=== PATIENT | female | born 1970 | race Caucasian/White ===

== ENCOUNTER → 2017-12-14 13:15 | Outpatient (CLI) | payer BC, SELFPAY ==
[2017-12-14 14:24] LABS: hCG Titer Quant., Serum < 1 mIU/mL (<9 non-preg)
[2017-12-14 14:29] LABS: Hemoglobin A1c 5.5 % (4.2-6.3)
[2017-12-14 14:31] LABS: Estradiol 81.2 pg/mL; Follicle Stimulating Hormone 6.1 mIU/mL; Free T3 2.4 pg/mL (2.18-3.98); T4 Free Direct 1.02 ng/dL (0.76-1.46); Thyroid Stim Hormone (TSH) 1.29 uIU/mL (0.358-3.74)
== END ==
PROVIDERS: Visit Provider Obstetrics & Gynecology
DX: N92.6 Irregular menstruation, unspecified (principal); R10.2 Pelvic and perineal pain
CPT/HCPCS: 36415; 82670; 83001; 83036; 84144; 84403; 84439; 84443; 84481; 84702

== ENCOUNTER → 2017-12-16 12:52 | Outpatient (CLI) | payer BC, SELFPAY ==
--- NOTE | 2017-12-16 12:58 | US_ITS ---
STUDY: ULTRASOUND OF THE FEMALE PELVIS - COMPLETE REASON FOR EXAM: Female, 47 years old. Pelvic pain LMP: 11/17/2017 TECHNIQUE: Transabdominal and Transvaginal TECHNICAL QUALITY: Adequate. COMPARISON: None. FINDINGS: The uterus is anteverted and is in a midline position. The uterus measures 8.9 x 5.2 x 4.0 cm. There are cervical nabothian cysts, the largest measuring 10 mm. The endometrium measures 18 mm in thickness, and is hyperechoic. There are several endometrial cysts measuring 6 x 4 x 3 mm and 6 x 5 x 4 mm. There is no demonstrated endometrial mass. There is no demonstrated myometrial mass. I.U.D. - The patient does not have an I.U.D. The right ovary is visualized. The right ovary measures 4.0 x 2.5 x 1.6 cm. There is a mixed echogenic right ovarian mass measuring 1.6 x 1.5 x 1.2 cm. There is no visualized right adnexal mass or complex lesion. There is normal arterial and normal venous vascularity. The left ovary is visualized. The left ovary measures 3.0 x 1.7 x 1.7 cm. cm. There is no left ovarian cyst or ovarian mass. There is no visualized left adnexal mass or complex lesion. There is normal arterial and normal venous vascularity. There is no fluid in the cul-de-sac. Polycystic ovary disease: No. US/Pelvic (Non ) IMPRESSION: Thickened endometrium, measuring 18 mm. There are several endometrial cystic foci measuring 6 x 4 x 3 mm and 6 x 5 x 4 mm respectively. There is a mixed echogenic well-defined right ovarian mass measuring 1.6 x 1.5 x 1.2 cm. There are cervical nabothian cysts, the largest measuring 10 mm. Further evaluation of the right ovary is recommended. Pelvic CT with and without contrast and/or MRI may be helpful for further evaluation at this time. Electronically Signed: Steven Shipley MD at 21:56 EDT , Service support ,
--- NOTE | 2017-12-16 13:15 | US_ITS ---
STUDY: ULTRASOUND OF THE FEMALE PELVIS - COMPLETE REASON FOR EXAM: Female, 47 years old. Pelvic pain LMP: 11/17/2017 TECHNIQUE: Transabdominal and Transvaginal TECHNICAL QUALITY: Adequate. COMPARISON: None. FINDINGS: The uterus is anteverted and is in a midline position. The uterus measures 8.9 x 5.2 x 4.0 cm. There are cervical nabothian cysts, the largest measuring 10 mm. The endometrium measures 18 mm in thickness, and is hyperechoic. There are several endometrial cysts measuring 6 x 4 x 3 mm and 6 x 5 x 4 mm. There is no demonstrated endometrial mass. There is no demonstrated myometrial mass. I.U.D. - The patient does not have an I.U.D. The right ovary is visualized. The right ovary measures 4.0 x 2.5 x 1.6 cm. There is a mixed echogenic right ovarian mass measuring 1.6 x 1.5 x 1.2 cm. There is no visualized right adnexal mass or complex lesion. There is normal arterial and normal venous vascularity. The left ovary is visualized. The left ovary measures 3.0 x 1.7 x 1.7 cm. cm. There is no left ovarian cyst or ovarian mass. There is no visualized left adnexal mass or complex lesion. There is normal arterial and normal venous vascularity. There is no fluid in the cul-de-sac. Polycystic ovary disease: No. US/Transvaginal Non- IMPRESSION: Thickened endometrium, measuring 18 mm. There are several endometrial cystic foci measuring 6 x 4 x 3 mm and 6 x 5 x 4 mm respectively. There is a mixed echogenic well-defined right ovarian mass measuring 1.6 x 1.5 x 1.2 cm. There are cervical nabothian cysts, the largest measuring 10 mm. Further evaluation of the right ovary is recommended. Pelvic CT with and without contrast and/or MRI may be helpful for further evaluation at this time. Electronically Signed: Steven Shipley MD at 21:56 EDT , Service support ,
== END ==
PROVIDERS: PCP Family Medicine; Visit Provider Obstetrics & Gynecology
DX: R14.0 Abdominal distension (gaseous) (principal); R10.2 Pelvic and perineal pain
CPT/HCPCS: 76830; 76856; 93976

== ENCOUNTER 2018-01-12 06:57 | Day surgery (SDC) | payer BC, SELFPAY ==
[2018-01-06 10:44] LABS: Hematocrit 40.7 % (37-47); Hemoglobin 13.3 g/dl (12.0-15.0); Mean Corp Hgb Conc 32.7 g/gl (32-36); Mean Corpuscular Hgb 28.9 pg (27.0-32.0); Mean Corpuscular Volume 88.5 fL (81-99); Mean Platelet Vol. 10.6 fl (6.2-12.0); Platelet Count 251 K/mm3 (150-450); RBC Distribution Width CV 13.4 % (11.6-14.6); RBC Distribution Width SD 43.4 fl (35.1-43.9); White Blood Count 5.8 K/mm3 (4.4-11.0)
[2018-01-06 10:48] LABS: Scan Indicated on CBC? Y/N NO
[2018-01-06 10:56] LABS: Prothrombin Time (Protime)PT. 13.6 SECONDS (11.7-14.9)
[2018-01-06 10:57] LABS: Partial Thromboplast Time 32.1 Seconds (24.1-36.2)
--- NOTE | 2018-01-11 | EMB_PTH ---
PATIENT: RIGO LA LOC: [facility] [place] U#:[id number] AGE/SX: 47/F ROOM: RE01/12/[address]: Dr. Juanis Brown MD : 1970 BED: DIS: 01/12/2018 SPEC #: [id number] RECD: 01/12/18 14:37 STATUS: GERA CRISTIAN #: [id number] JESSICA: 01/11/18 00:[address]: Juanis Brown DEPT: SURGICAL PATHOLOGY RECD BY: Carlos Willett ENTERED: 01/12/18 14:38 SP TYPE: ENDOM BX/C LINSEY DR: MD Joseph Glasgow Tissues: Endometrium, NOS Procedures: Surgery Specimen Level IV HEADER OPERATION: Hysteroscopy, dilation and curettage PRE-OP DIAGNOSIS: Thickened endometrium TISSUE SUBMITTED: Uterus, endometrium MICROSCOPIC DIAGNOSIS Endometrium, dilation and curettage: Secretory endometrium. SJ:lilia 01/15/18 MICROSCOPIC DESCRIPTION Slides are reviewed. GROSS DESCRIPTION Received in fixative is one container labeled with the patient's name and designated endometrium. The specimen consists of multiple irregular fragments of alfaro-pink soft tissue that in aggregate measure 5 x 3 x 0.3 cm. The specimen is totally submitted in two cassettes. / SJ:lilia 01/12/18 TC:4 CPT: 90446
[2018-01-12] VITALS (8 sets, daily range): BP systolic 107–127; BP diastolic 65–81; PULSE 61–72; RESP 16; TEMP 36.8–37.1; O2SAT 99–100; BMI 30.6
[2018-01-12 07:58] LABS: Internal QC Validated? YES +Cl - CLEAR BKGD; Pregnancy, Urine Negative Negative
--- NOTE | 2018-01-12 09:01 | OP.PCM_ITS ---
Problem List (1) Endometrial thickening on ultrasound Status: Acute Report of Operation Date of Procedure: 01/12/18 Pre-Operative Diagnosis: Thickened endometrium on ultrasound Post-Operative Diagnosis: Same Surgery/Procedure Performed:: D and C, hysteroscopy diagnostic Description of Surgical Findings:: Uterus was sounded to approximately 9 and half centimeters in anterior position. Uterus was fully mobile. Bilateral adnexa are benign and fully mobile. artillery meteorological man: Hue Khalil Type of Anesthesia:: Local, MAC Anesthesiologist: Trav Hendrix Special Medications: Clindamycin and gentamicin IV preoperatively Specimen's removed: Endometrium Drains: None Estimated Blood Loss (mL): Minimal Fluids Replaced: Lactated ringer Description of Procedure: Patient presented to the operating suite and n.p.o. status since midnight the night before surgery. Patient was placed on the operating bed and underwent a MAC anesthetic. Once found be adequate, she was placed in the dorsal lithotomy position via the Rey stirrups. She was prepped and draped in the normal sterile fashion and the bladder was emptied of all remaining urine with a straight catheter. The urine was approximately 200 cc of clear urine. The weighted speculum was then placed to the vagina and the anterior lip of the cervix was grasped and elevated. 10 cc of 1% lidocaine was placed locally to the 4 quadrants of the cervix. Patient tolerated the procedure well. The uterus was sounded to 9-1/2 cm in an anterior position. The cervical eyes was then dilated to accommodate a 3 mm hysteroscope. At 3 mm hysteroscope was placed into the endometrial cavity with a large amount of endometrium noted throughout the entire endometrial cavity. The hysteroscope was removed and followed by sharp curettage of the entire endometrial cavity. This tissue was collected and sent away for pathological diagnosis. Replacement of hysteroscope into the endometrial cavity revealed removal of all tissue. The hysteroscope was then removed from the endometrial cavity Grafts/Implants Used: None - Complications None - Admit VTE Documentation VTE Present on Admission: No VTE Pharm Prophylaxis ordered?: No Reason prophylaxis not ordered:: Procedure Not Indicated
--- NOTE | 2018-01-12 09:03 | DCINST_ITS ---
Discharge Diet: No Restrictions Discharge Activity: Return to Normal Activity, May Shower, May Take a Tub Bath - in 2 weeks. Return to work on:: 01/15/18 May shower in (days): 0 - TODAY May resume sexual activity in: 2 weeks Weight Bearing Status: Full weight bearing Lifting Restrictions: none Call your doctor if your incision/area has: Sudden Increased Bleeding Call your doctor if you observe: Fever of 101 or Higher, Inability to urinate, Inability to have a bowel movement, Using more than one pad per hour Cleanse incision/area with: Soap & Water Allergies/Adverse Reactions: Allergies Penicillins [PCN] Allergy (Verified 01/12/18 07:33) Rash Sulfa (Sulfonamide Antibiotics) Allergy (Verified 01/12/18 07:33) Rash Medications to take at Discharge Multivitamin [Multiple Vitamins] 1 each PO DAILY 01/05/18 Pantoprazole Sodium [Protonix] 40 mg PO BID 01/05/18 Polyethylene Glycol 3350 [Miralax] 17 gm PO DAILY 01/05/18 Primary Care Physician: Joseph Duque MD [Primary Care Provider] - Test Results: Test results from this visit will be discussed in further detail at your follow- up appointment, if applicable. Please Follow Up With: Juanis Brown MD When: schedule appointment for office follow up - plan follow up for January 19
== END 2018-01-12 10:05 | disposition home or self-care (01) ==
LOC: SDC 06:58 → AC 06:58
PROVIDERS: PCP Family Medicine; Visit Provider Obstetrics & Gynecology
PROC: 0UDB8ZZ Extraction of Endometrium, Via Natural or Artificial Opening Endoscopic (ICD-10-PCS; CPT 58558; principal; 2018-01-12 08:20)
DX: R93.8 Abnormal findings on diagnostic imaging of other specified body structures (principal); K21.9 Gastro-esophageal reflux disease without esophagitis; R14.0 Abdominal distension (gaseous)
CPT/HCPCS: 00952; 58558; 36415; 81025; 85027; 85610; 85730; 86850; 86900; 88305; J7120

== ENCOUNTER → 2018-05-28 08:57 | Outpatient (CLI) | payer BC, SELFPAY ==
--- NOTE | 2018-05-28 09:05 | BI_ITS ---
MAMMOGRAPHY - BILATERAL DIAGNOSTIC REASON FOR EXAM: Female, 48 years old. Left lateral pain and fullness. PERTINENT HISTORY: Mother with breast cancer. Grandmother with breast cancer. TECHNIQUE: Digital bilateral breast jack (3D mammographic acquisition) in the CC and MLO projections. 2-D mediolateral oblique (MLO) and craniocaudad (CC) views of both breasts were obtained. CAD: Full Field Digital Mammography with Computer Added Detection was performed. COMPARISON: Comparison is made with prior outside examination dated July 13, 2017. FINDINGS: Breast Composition: There are scattered areas of fibroglandular density. There are no dominant masses or suspicious calcifications. No other significant abnormalities are identified. There has been no significant change since the prior study. BI/DIAG MAMM W/CAD, BILAT IMPRESSION: Stable bilateral diagnostic mammogram. With the patient's history of left breast pain and fullness, correlation with ultrasound is recommended. ASSESSMENT CATEGORY: BIRADS Category 0: Incomplete. Need additional imaging evaluation. A letter regarding these results will be sent to the patient by the facility within 30 days. Approximately 10% of breast cancers are not detected by mammography. A normal mammogram should not delay biopsy of a clinically suspicious abnormality. Electronically Signed: Rigo Santos MD at 13:16 EST Tel [phone], Service support ,
--- NOTE | 2018-05-28 09:06 | US_ITS ---
STUDY: ULTRASOUND BREAST - LEFT REASON FOR EXAM: Female, 48 years old. Pain in the left breast. TECHNIQUE: Axial and longitudinal images of the LEFT breast were performed with a high resolution ultrasound transducer. COMPARISON: Comparison is made with prior mammogram done earlier today. Comparison is made with prior outside ultrasound examination dated August 08, 2017. FINDINGS: LEFT Breast: The lower medial aspect of the left breast was examined by ultrasound. There is homogeneous fibroglandular tissue. No solid or cystic mass lesion is seen. US/Breast Limited Unilateral IMPRESSION: No sonographic abnormality is seen. ASSESSMENT CATEGORY: BIRADS Category 1: Negative. A letter regarding these results will be sent to the patient by the facility within 30 days. Electronically Signed: Rigo Santos MD at 11:25 EST Tel [phone], Service support ,
--- OUTSIDE RECORDS SUMMARY | 2018-07-21 11:11 | XMS RPT_ITS ---
:1970 Author Organization [facility] Care Team Providers Name Role Phone Juanis Brown Attending Unavailable Juanis Brown Attending Unavailable Juanis Brown Attending Unavailable Juanis Brown Referring Unavailable Carlson, Joseph Primary Care Unavailable Juanis Brown Attending Unavailable Juanis Brown Referring Unavailable Carlson, Joseph Primary Care Unavailable Juanis Brown Attending Unavailable Juanis Brown Referring Unavailable Carlson, Joseph Primary Care Unavailable Juanis Brown Admitting Unavailable Juanis Brown Attending Unavailable No Doctor Assigned, Nodr Primary Care Unavailable Juanis Brown Admitting Unavailable Juanis Brown Attending Unavailable Carlson, Christopher Primary Care Unavailable Bundy, Remberto Admitting Unavailable Bundy, Remberto Attending Unavailable No Doctor Assigned, Nodr Primary Care Unavailable Carlson, Christopher Attending Unavailable No Doctor Assigned, Nodr Primary Care Unavailable Carlson, Christopher Admitting Unavailable Carlson, Christopher Attending Unavailable No Doctor Assigned, Nodr Primary Care Unavailable No Doctor Assigned, Nodr Primary Care Unavailable Bon, J Carlos W Admitting Unavailable Bon, J Carlos W Attending Unavailable Carlson, Christopher Attending Unavailable No Doctor Assigned, Nodr Primary Care Unavailable Carlson, Christopher Admitting Unavailable Carlson, Christopher Attending Unavailable Carlson, Christopher Referring Unavailable No Doctor Assigned, Nodr Primary Care Unavailable Carlson, Christopher Attending Unavailable No Doctor Assigned, Nodr Primary Care Unavailable Thomae, Andrade R Attending Unavailable No Doctor Assigned, Nodr Primary Care Unavailable Corkwell, Cheryle Admitting Unavailable Corkwell, Cheryle Attending Unavailable No Doctor Assigned, Nodr Primary Care Unavailable Corkwell, Cheryle Admitting Unavailable Corkwell, Cheryle Attending Unavailable No Doctor Assigned, Nodr Primary Care Unavailable Corkwell, Cheryle Admitting Unavailable Corkwell, Cheryle Attending Unavailable No Doctor Assigned, Nodr Primary Care Unavailable Carlson, Christopher Attending Unavailable No Doctor Assigned, Nodr Primary Care Unavailable Thomae, Andrade R Attending Unavailable Carlson, Christopher Referring Unavailable No Doctor Assigned, Nodr Primary Care Unavailable Thomae, Andrade R Admitting Unavailable Thomae, Andrade R Attending Unavailable Thomae, Andrade R Admitting Unavailable Carlson, Christopher Primary Care Unavailable Carlson, Christopher Attending Unavailable Carlson, Christopher Primary Care Unavailable J Carlos Lora Consulting Unavailable Carlson, Christopher Admitting Unavailable Carlson, Christopher Attending Unavailable Carlson, Christopher Primary Care Unavailable Zumbar, Yobani Admitting Unavailable Zumbar, Yobani Attending Unavailable Carlson, Christopher Primary Care Unavailable Zumbar, Yobani Admitting Unavailable Zumbar, Yobani Attending Unavailable Carlson, Christopher Primary Care Unavailable Zumbar, Yobani Admitting Unavailable Zumbar, Yobani Attending Unavailable Carlson, Christopher Primary Care Unavailable Zumbar, Yobani Admitting Unavailable Zumbar, Yobani Attending Unavailable Carlson, Christopher Primary Care Unavailable BISMARK MOLINA Attending Unavailable NO, PHYSICIAN Primary Care Unavailable Manuel, Ms. Cheryle Quezada Admitting Unavailable Ms. Cheryle Jackson Attending Unavailable *SELF, REFERRED Referring Unavailable PROBLEMS PROBLEMS DATE TYPE CONDITION / CODE ATTENDING STATUS SOURCE 03/07/2018 Unknown R93.8 - Abnormal Juanis Brown findings on [facility] diagnostic [facility] imaging of other Repository specified body structures / R93.8(ICD-10) 12/14/2017 Unknown N92.6 - Irregular Juanis Brown menstruation, Community unspecified / Hospital N92.6(ICD-10) Repository 11/10/2017 Final diagnosis Epigastric pain / Ms. Manuel Active [place] (discharge) R10.13(ICD-10) [facility] Repository 11/10/2017 Final diagnosis Abdominal Manuel, . Active [place] (discharge) distension [facility] (gaseous) / Repository R14.0(ICD-10) 07/14/2017 Unknown Z12.4 - Encounter Juanis Brown for screening for [facility] neoplasm of Repository cervix / Z12.4(ICD-10) PROCEDURES PROCEDURES No Procedure Records FoundRESULTS RESULTS BREAST LIMITED Observed: 05/28/2018 Status: F Source: CHAU UNILATERAL 9:06 AM [facility] REPOSITORY [facility] Imaging Services [address] [address] Breast Limited Unilateral MR#: [id number] Acct: [id number] Name: VY LA Rep #: [id number] : 1970 F 48 From: Rigo Santos MD PCP: Vance Carlson MD Status: REG CLI Study: Breast Limited Unilateral Date of Exam: 05/28/18 Exam# [id number] Ordering Dr: Juanis Brown MD STUDY: ULTRASOUND BREAST - LEFT REASON FOR EXAM: Female, 48 years old. Pain in the left breast. TECHNIQUE: Axial and longitudinal images of the LEFT breast were performed with a high resolution ultrasound transducer. COMPARISON: Comparison is made with prior mammogram done earlier today. Comparison is made with prior outside ultrasound examination dated August 08, 2017. FINDINGS: LEFT Breast: The lower medial aspect of the left breast was examined by ultrasound. There is homogeneous fibroglandular tissue. No solid or cystic mass lesion is seen. US/Breast Limited Unilateral IMPRESSION: No sonographic abnormality is seen. ASSESSMENT CATEGORY: BIRADS Category 1: Negative. A letter regarding these results will be sent to the patient by the facility within 30 days. Electronically Signed: Rigo Santos MD at 11:25 EST Tel [phone], Service support , CC: Juanis Brown MD; Vance Carlson MD Stockholder: Signed DIAG MAMM W/CAD, Observed: 05/28/2018 Status: F Source: [place] BILAT 9:06 AM [facility] REPOSITORY [facility] Imaging Services [address] [place] [address] DIAG MAMM W/CAD, BILAT MR#: [id number] Acct: [id number] Name: VY LA Rep #: [id number] : 1970 F 48 From: Rigo Santos MD PCP: Vance Carlson MD Status: REG CLI Study: DIAG MAMM W/CAD, BILAT Date of Exam: 05/28/18 Exam# [id number] Ordering Dr: Juanis Brown MD MAMMOGRAPHY - BILATERAL DIAGNOSTIC REASON FOR EXAM: Female, 48 years old. Left lateral pain and fullness. PERTINENT HISTORY: Mother with breast cancer. Grandmother with breast cancer. TECHNIQUE: Digital bilateral breast jack (3D mammographic acquisition) in the CC and MLO projections. 2-D mediolateral oblique (MLO) and craniocaudad (CC) views of both breasts were obtained. CAD: Full Field Digital Mammography with Computer Added Detection was performed. COMPARISON: Comparison is made with prior outside examination dated July 13, 2017. FINDINGS: Breast Composition: There are scattered areas of fibroglandular density. There are no dominant masses or suspicious calcifications. No other significant abnormalities are identified. There has been no significant change since the prior study. BI/DIAG MAMM W/CAD, BILAT IMPRESSION: Stable bilateral diagnostic mammogram. With the patient's history of left breast pain and fullness, correlation with ultrasound is recommended. ASSESSMENT CATEGORY: BIRADS Category 0: Incomplete. Need additional imaging evaluation. A letter regarding these results will be sent to the patient by the facility within 30 days. Approximately 10% of breast cancers are not detected by mammography. A normal mammogram should not delay biopsy of a clinically suspicious abnormality. Electronically Signed: Rigo Santos MD at 13:16 EST Tel [phone], Service support , CC: Juanis Brown MD; Vance Carlson MD Stockholder: Signed CRP Collected: 04/23/2018 Status: F Source: [place] 6:22 PM [facility] REPOSITORY TYPE CODE TESTS RESULT OUT OF RANGE REFERENCE UNITS LAB [id number](LO 0.00-1.00 mg/dL INC) Normal CRP 0.10 Performed By: #### [id number] #### ANA [facility] [place] [address] SED RATE AUTOMATED Collected: 04/23/2018 Status: F Source: [place] 6:22 PM [facility] REPOSITORY TYPE CODE TESTS RESULT OUT OF RANGE REFERENCE UNITS LAB [id number](L mm/hr OINC) Sed Normal Rate Automated 10 Result Comment: AGE-SPECIFIC REFERENCE RANGES FOR SEDIMENTATION RATE AUTOMATED REFERENCE RANGE - MM/HR AGE MEN WOMEN 0-2 0-2 - PUBERTY 3-13 3-13 PUBERTY - 50 YRS 0-15 0-20 > 50 YRS 0-20 0-30 Performed By: #### [id number] #### ANA Hematology Manual Subsection [facility] [place] [id number] XR SPINE THORACIC 3 Observed: 03/28/2018 Status: F Source: [facility] 5:54 PM [facility] REPOSITORY Exam Date/Time: 03/28/2018 18:00 EDT Reason for Exam: Pain, Non Traumatic Report STUDY: XR Spine Thoracic 3 Views; 03/28/2018 6:00 pm INDICATION: Pain, Non Traumatic. COMPARISON: None. ACCESSION NUMBER(S): [id number] ORDERING CLINICIAN: Vance Carlson FINDINGS: Three views thoracic spine. There is mild midthoracic dextroconvex curvature. Otherwise, alignment is normal. Vertebral body heights are maintained. Degenerative disc changes are noted in the mid to lower cervical and mid to lower thoracic spine. The imaged lungs are clear. IMPRESSION: No evidence of acute fracture or traumatic subluxation of the thoracic spine. Mild to moderate degenerative disc changes of the cervical and thoracic spine. FINAL REPORT Dictated: 03/29/2018 2:07 am Olamide Contreras MD Signed (Electronic Signature): 03/29/2018 2:07 am Signed by: Olamide Contreras MD Technologist: [facility] HARSHAL TEST Collected: 01/26/2018 Status: F Source: [place] 8:20 AM [facility] REPOSITORY TYPE CODE TESTS RESULT OUT OF RANGE REFERENCE UNITS LAB [id number]( Negative INC) Normal HARSHAL Negative Test Performed By: #### [id number] #### ANA [facility] Micro SubSection , DISCHARGE INSTRUCTION Observed: 01/12/2018 Status: F Source: CHAU 9:03 AM [facility] REPOSITORY [facility] Medical Records Department [address] [place] [address] Instructions for Home/Discharge Instructions 01/12/18 09 MR#: [id number] Acct: [id number] Name: VY LA Rep #: [id number] : 1970 47 From: Juanis Brown MD PCP: Vance Carlson MD Status: REG [facility] Discharge Diet: No Restrictions Discharge Activity: Return to Normal Activity, May Shower, May Take a Tub Bath - in 2 weeks. Return to work on:: 01/15/18 May shower in (days): 0 - TODAY May resume sexual activity in: 2 weeks Weight Bearing Status: Full weight bearing Lifting Restrictions: none Call your doctor if your incision/area has: Sudden Increased Bleeding Call your doctor if you observe: Fever of 101 or Higher, Inability to urinate, Inability to have a bowel movement, Using more than one pad per hour Cleanse incision/area with: Soap AND Water Allergies/Adverse Reactions: Allergies Penicillins [PCN] Allergy (Verified 01/12/18 07:33) Rash Sulfa (Sulfonamide Antibiotics) Allergy (Verified 01/12/18 07:33) Rash Medications to take at Discharge Multivitamin [Multiple Vitamins] 1 each PO DAILY 01/05/18 Pantoprazole Sodium [Protonix] 40 mg PO BID 01/05/18 Polyethylene Glycol 3350 [Miralax] 17 gm PO DAILY 01/05/18 Primary Care Physician: Joseph Carlson MD [Primary Care Provider] - Test Results: Test results from this visit will be discussed in further detail at your follow-up appointment, if applicable. Please Follow Up With: Juanis Brown MD When: schedule appointment for office follow up - plan follow up for January 1901/12/18 0903 <Electronically signed by Juanis Brown MD> Date Juanis Brown MD CC: Joseph Carlson; Vance Carlson MD OPERATIVE REPORT Observed: 01/12/2018 Status: F Source: [place] 9:01 AM [facility] REPOSITORY [facility] Medical Records Department [address] [place] [address] Operative Report 01/12/18 0857 MR#: [id number] Acct: [id number] Name: VY LA Rep #: [id number] : 1970 47 From: Juanis Brown MD PCP: Vance Carlson MD Status: REG SD Y Location: [place] [address] Problem List (1) Endometrial thickening on ultrasound Status: Acute Report of Operation Date of Procedure: 01/12/18 Pre-Operative Diagnosis: Thickened endometrium on ultrasound Post-Operative Diagnosis: Same Surgery/Procedure Performed:: D and C, hysteroscopy diagnostic Description of Surgical Findings:: Uterus was sounded to approximately 9 and half centimeters in anterior position. Uterus was fully mobile. Bilateral adnexa are benign and fully mobile. leather colorer: Hue Khalil Type of Anesthesia:: Local, MAC Anesthesiologist: Trav Hendrix Special Medications: Clindamycin and gentamicin IV preoperatively Specimen's removed: Endometrium Drains: None Estimated Blood Loss (mL): Minimal Fluids Replaced: Lactated ringer Description of Procedure: Patient presented to the operating suite and n.p.o. status since midnight the night before surgery. Patient was placed on the operating bed and underwent a MAC anesthetic. Once found be adequate, she was placed in the dorsal lithotomy position via the Rey stirrups. She was prepped and draped in the normal sterile fashion and the bladder was emptied of all remaining urine with a straight catheter. The urine was approximately 200 cc of clear urine. The weighted speculum was then placed to the vagina and the anterior lip of the cervix was grasped and elevated. 10 cc of 1% lidocaine was placed locally to the 4 quadrants of the cervix. Patient tolerated the procedure well. The uterus was sounded to 9-1/2 cm in an anterior position. The cervical eyes was then dilated to accommodate a 3 mm hysteroscope. At 3 mm hysteroscope was placed into the endometrial cavity with a large amount of endometrium noted throughout the entire endometrial cavity. The hysteroscope was removed and followed by sharp curettage of the entire endometrial cavity. This tissue was collected and sent away for pathological diagnosis. Replacement of hysteroscope into the endometrial cavity revealed removal of all tissue. The hysteroscope was then removed from the endometrial cavity Grafts/Implants Used: None - Complications None - Admit VTE Documentation VTE Present on Admission: No VTE Pharm Prophylaxis ordered?: No Reason prophylaxis not ordered:: Procedure Not Indicated 01/12/18 09 <Electronically signed by Juanis Brown MD> Date Juanis Brown MD CC: Joseph Carlson; Juanis Brown MD; Vance Carlson MD Signed ,URINE Collected: 01/12/2018 Status: F Source: CHAU 7:10 AM [facility] REPOSITORY TYPE CODE TESTS RESULT OUT OF REFERENCE UNITS RANGE LAB L400.8000 Negative Normal HCGUQUAL Negative Result Comment: Very dilute urine specimens, as indicated by a low specific gravity, may not contain veterans contact representative levels of hCG. If is still suspected, a first morning urine specimen should be collected 48 hours later and tested. Performed By: #### L400.7600 #### [facility] [address] [place], [address] ENDOMETRIAL BX/CURETTINGS Observed: 01/11/2018 Status: F Source: CHAU 12:00 AM [facility] REPOSITORY Patient: VY LA : 1970 (47/F) Acct Num: [id number] Phys: Juanis Brown MD Unit Num: [id number] Loc: [facility] Specimen: [id number] Received: 01/12/18 - 1437 Spec Type: ENDOM BX/C TISSUES TISSUES: Endometrium, NOS GROSS DESCRIPTION Received in fixative is one container labeled with the patient's name and designated endometrium. The specimen consists of multiple irregular fragments of alfaro-pink soft tissue that in aggregate measure 5 x 3 x 0.3 cm. The specimen is totally submitted in two cassettes. / SJ:lilia 01/12/18 TC:4 CPT: 65607 HEADER OPERATION: Hysteroscopy, dilation and curettage PRE-OP DIAGNOSIS: Thickened endometrium TISSUE SUBMITTED: Uterus, endometrium MICROSCOPIC DESCRIPTION Slides are reviewed. MICROSCOPIC DIAGNOSIS Endometrium, dilation and curettage: Secretory endometrium. SJ:lilia 01/15/18 Signed Tyler Soliz 01/16/18 <signature on file> Performed By: #### PEMB #### [facility] [address] [place], [address] CBC-COMPLETE BLOOD CNT Collected: 01/06/2018 Status: F Source: CHAU NO DIFF 10:06 AM [facility] REPOSITORY TYPE CODE TESTS RESULT OUT OF RANGE REFERENCE UNITS LAB L100.1000 4.4-11.0 K/mm3 Normal WBC 5.8 LAB L100.1200 4.2-5.4 M/mm3 Normal RBC 4.60 LAB L100.1300 12.0-15.0 g/dl Normal HGB 13.3 LAB L100.1400 37-47 % Normal HCT 40.7 LAB L100.1500 81-99 fL Normal MCV 88.5 LAB L100.1600 27.0-32.0 pg Normal MCH 28.9 LAB L100.1700 32-36 g/gl Normal MCHC 32.7 LAB L100.1810 11.6-14.6 % Normal RDW CV 13.4 LAB L100.1820 35.1-43.9 fl Normal RDW SD 43.4 LAB L100.1900 150-450 K/mm3 Normal PLT 251 LAB L100.2000 6.2-12.0 fl Normal MPV 10.6 Performed By: #### L100.0500 #### [facility] [address] [place], [address] PROTHROMBIN TIME W/INR Collected: 01/06/2018 Status: F Source: [place] 10:06 AM [facility] REPOSITORY TYPE CODE TESTS RESULT OUT OF RANGE REFERENCE UNITS LAB L300.4150 11.7-14.9 SECONDS Normal PROTIME 13.6 LAB L300.4200 Normal INR 1.0 Performed By: #### L300.3900, L300.4310 #### [facility] [address] [place], [address] PARTIAL THROMBOPLAST Collected: 01/06/2018 Status: F Source: [place] TIME 10:06 AM [facility] REPOSITORY TYPE CODE TESTS RESULT OUT OF RANGE REFERENCE UNITS LAB L300.4310 24.1-36.2 Seconds Normal PTT 32.1 Performed By: #### L300.3900, L300.4310 #### [facility] [address] [place], [address] TYPE AND SCREEN Collected: 01/06/2018 Status: F Source: [place] 10:06 AM [facility] REPOSITORY Order Comment: Surgery Date: 01/12/18 Hx of Preganancy in last 3 Months No Ever experience any problems with transfusion(s)? N Hx of Transfusion in last 3 Months N Reason for Type AND Screen/Red Cells: SURGERY SURGICAL PROCEDURE: D AND C TYPE CODE TESTS RESULT OUT OF RANGE REFERENCE UNITS LAB B10.0800 O Normal BLOOD TYPE GEL POSITIVE LAB B100.4000 Normal Antibody NEGATIVE Screen Performed By: #### B101.7475 #### [facility] [address] [place], [address] TRANSVAGINAL Observed: 12/16/2017 Status: F Source: [place] NON- 1:15 PM [facility] REPOSITORY [facility] Imaging Services [address] [place] [address] Transvaginal Non- MR#: [id number] Acct: [id number] Name: VY LA Rep #: [id number] : 1970 F 47 From: Steven Shipley MD PCP: Vance Carlson MD Status: REG CLI Study: Transvaginal Non- Date of Exam: 12/16/17 Exam# [id number] Ordering Dr: Juanis Brown MD STUDY: ULTRASOUND OF THE FEMALE PELVIS - COMPLETE REASON FOR EXAM: Female, 47 years old. Pelvic pain LMP: 11/17/2017 TECHNIQUE: Transabdominal and Transvaginal TECHNICAL QUALITY: Adequate. COMPARISON: None. FINDINGS: The uterus is anteverted and is in a midline position. The uterus measures 8.9 x 5.2 x 4.0 cm. There are cervical nabothian cysts, the largest measuring 10 mm. The endometrium measures 18 mm in thickness, and is hyperechoic. There are several endometrial cysts measuring 6 x 4 x 3 mm and 6 x 5 x 4 mm. There is no demonstrated endometrial mass. There is no demonstrated myometrial mass. I.U.D. - The patient does not have an I.U.D. The right ovary is visualized. The right ovary measures 4.0 x 2.5 x 1.6 cm. There is a mixed echogenic right ovarian mass measuring 1.6 x 1.5 x 1.2 cm. There is no visualized right adnexal mass or complex lesion. There is normal arterial and normal venous vascularity. The left ovary is visualized. The left ovary measures 3.0 x 1.7 x 1.7 cm. cm. There is no left ovarian cyst or ovarian mass. There is no visualized left adnexal mass or complex lesion. There is normal arterial and normal venous vascularity. There is no fluid in the cul-de-sac. Polycystic ovary disease: No. US/Transvaginal Non- IMPRESSION: Thickened endometrium, measuring 18 mm. There are several endometrial cystic foci measuring 6 x 4 x 3 mm and 6 x 5 x 4 mm respectively. There is a mixed echogenic well-defined right ovarian mass measuring 1.6 x 1.5 x 1.2 cm. There are cervical nabothian cysts, the largest measuring 10 mm. Further evaluation of the right ovary is recommended. Pelvic CT with and without contrast and/or MRI may be helpful for further evaluation at this time. Electronically Signed: Steven Shipley MD at 21:56 EDT , Service support , CC: Juanis Brown MD; Vance Carlson MD Stockholder: Signed PELVIC (NON ) Observed: 12/16/2017 Status: F Source: [place] 12:58 PM [facility] REPOSITORY [facility] Imaging Services [address] [place] [address] Pelvic (Non ) MR#: [id number] Acct: [id number] Name: VY LA Rep #: [id number] : 1970 F 47 From: Steven Shipley MD PCP: Vance Carlson MD Status: REG CLI Study: Pelvic (Non ) Date of Exam: 12/16/17 Exam# [id number] Ordering Dr: Juanis Brown MD STUDY: ULTRASOUND OF THE FEMALE PELVIS - COMPLETE REASON FOR EXAM: Female, 47 years old. Pelvic pain LMP: 11/17/2017 TECHNIQUE: Transabdominal and Transvaginal TECHNICAL QUALITY: Adequate. COMPARISON: None. FINDINGS: The uterus is anteverted and is in a midline position. The uterus measures 8.9 x 5.2 x 4.0 cm. There are cervical nabothian cysts, the largest measuring 10 mm. The endometrium measures 18 mm in thickness, and is hyperechoic. There are several endometrial cysts measuring 6 x 4 x 3 mm and 6 x 5 x 4 mm. There is no demonstrated endometrial mass. There is no demonstrated myometrial mass. I.U.D. - The patient does not have an I.U.D. The right ovary is visualized. The right ovary measures 4.0 x 2.5 x 1.6 cm. There is a mixed echogenic right ovarian mass measuring 1.6 x 1.5 x 1.2 cm. There is no visualized right adnexal mass or complex lesion. There is normal arterial and normal venous vascularity. The left ovary is visualized. The left ovary measures 3.0 x 1.7 x 1.7 cm. cm. There is no left ovarian cyst or ovarian mass. There is no visualized left adnexal mass or complex lesion. There is normal arterial and normal venous vascularity. There is no fluid in the cul-de-sac. Polycystic ovary disease: No. US/Pelvic (Non ) IMPRESSION: Thickened endometrium, measuring 18 mm. There are several endometrial cystic foci measuring 6 x 4 x 3 mm and 6 x 5 x 4 mm respectively. There is a mixed echogenic well-defined right ovarian mass measuring 1.6 x 1.5 x 1.2 cm. There are cervical nabothian cysts, the largest measuring 10 mm. Further evaluation of the right ovary is recommended. Pelvic CT with and without contrast and/or MRI may be helpful for further evaluation at this time. Electronically Signed: Steven Shipley MD at 21:56 EDT , Service support , CC: Juanis Brown MD; Vance Carlson MD Stockholder: Signed HCG TITER QUANT., Collected: 12/14/2017 Status: F Source: CHAU SERUM 1:21 PM [facility] REPOSITORY TYPE CODE TESTS RESULT OUT OF RANGE REFERENCE UNITS LAB L700.8000 <9 non-preg mIU/mL Normal HCG < 1 QUANT. Performed By: #### L700.8000 #### [facility] [address] [place], [address] HEMOGLOBIN A1C Collected: 12/14/2017 Status: F Source: CHAU 1:21 PM [facility] REPOSITORY TYPE CODE TESTS RESULT OUT OF RANGE REFERENCE UNITS LAB L501.9985 4.2-6.3 % Normal HGB A1C 5.5 Performed By: #### L501.9985 #### [facility] [address] [place], [address] FREE T3 Collected: 12/14/2017 Status: F Source: CHAU 1:21 PM [facility] REPOSITORY TYPE CODE TESTS RESULT OUT OF RANGE REFERENCE UNITS LAB L501.15517 2.18-3.98 pg/mL Normal FREE T3 2.4 Performed By: #### L501.53340, L501.9520, L506.0400, L3100.5125, L3300.1750 #### [facility] [facility] [address] [place], [address] THYROID STIM HORMONE Collected: 12/14/2017 Status: F Source: CHAU (TSH) 1:21 PM [facility] REPOSITORY TYPE CODE TESTS RESULT OUT OF RANGE REFERENCE UNITS LAB L501.9520 0.358-3.74 uIU/mL Normal TSH 1.29 Performed By: #### L501.94582, L501.9520, L506.0400, L3100.5125, L3300.1750 #### [facility] [address] [place], [address] T4 FREE DIRECT Collected: 12/14/2017 Status: F Source: CHAU 1:21 PM [facility] REPOSITORY TYPE CODE TESTS RESULT OUT OF RANGE REFERENCE UNITS LAB L506.0400 0.76-1.46 ng/dL Normal T4 FREE 1.02 DIRECT Performed By: #### L501.56382, L501.9520, L506.0400, L3100.5125, L3300.1750 #### [facility] [address] [place], [place], [address] FOLLICLE STIMULATING Collected: 12/14/2017 Status: F Source: CHAU HORMONE 1:21 PM [facility] REPOSITORY TYPE CODE TESTS RESULT OUT OF RANGE REFERENCE UNITS LAB L3100.5125 mIU/mL Normal FSH 6.1 Result Comment: NORMAL REFERENCE RANGES FEMALE FOLLICULAR 2.3 - 12.6 mIU/mL MID-CYCLE PEAK 5.2 - 17.5 mIU/mL LUTEAL 1.7 - 12.9 mIU/mL POST-MENOPAUSAL ON MHT 5.9 - 72.8 mIU/mL NOT ON MHT 12.7 - 132.2 mlU/mL MALE 0.7 - 10.8 mIU/mL NEW TEST METHOD AND REFERENCE RANGES NOVEMBER 14, 2011 Performed By: #### L501.30709, L501.9520, L506.0400, L3100.5125, L3300.1750 #### [facility] [address] [place], [place], [address] ESTRADIOL Collected: 12/14/2017 Status: F Source: CHAU 1:21 PM [facility] REPOSITORY TYPE CODE TESTS RESULT OUT OF RANGE REFERENCE UNITS LAB L3300.1750 pg/mL Normal ESTRADIOL 81.2 Result Comment: NORMAL REFERENCE RANGES FEMALE FOLLICULAR 21.4 - 164.8 pg/mL MID-CYCLE PEAK 49.9 - 367.2 pg/mL LUTEAL 40.2 - 259.0 pg/mL POST-MENOPAUSAL ON MHT <11.0 - 462.1 pg/mL NOT ON MHT <11.0 - 58.3 pg/mL MALE <11.0 - 52.5 pg/mL NOTE: [facility] HAS CONFIRMED THE DRUG FULVETRANT (FASLODEX) MAY CAUSE FALSELY ELEVATED ESTRADIOL RESULTS WHEN USING THIS TEST METHOD. IF PATIENT IS TAKING FULVESTRANT AN ALTERNATIVE METHOD SHOULD BE USED TO DETERMINE ESTRADIOL CONCENTRATION. Performed By: #### L501.19167, L501.9520, L506.0400, L3100.5125, L3300.1750 #### [facility] [address] [place], [address] TESTOSTERONE, SERUM TOTAL Collected: 12/14/2017 Status: F Source: CHAU 1:21 PM [facility] REPOSITORY TYPE CODE TESTS RESULT OUT OF REFERENCE UNITS RANGE LAB L509.3000 ng/dL Testosterone Normal 11.89 Result Comment: NORMAL REFERENCE RANGES MALE AGE <50 123.06 - 813.86 ng/dL MALE AGE >50 89.98 - 780.10 ng/dL FEMALE PREMENOPAUSE AGE 21 - 60 9.01 - 47.94 ng/dL FEMALE POSTMENOPAUSE AGE 45 - 89 <7.00 - 45.62 ng/dL REFERENCE RANGE AND METHODOLOGY CHANGED 06/14/2017 Performed By: #### L509.3000, L509.4001 #### [facility] [address] [place], [address] PROGESTERONE LEVEL Collected: 12/14/2017 Status: F Source: CHAU 1:21 PM [facility] REPOSITORY TYPE CODE TESTS RESULT OUT OF REFERENCE UNITS RANGE LAB L509.4001 See Comment ng/mL Progesterone Normal 8.40 Result Comment: Progesterone Reference Table: UNITS Female: Follicular 0.15 - 1.40 ng/mL Luteal 3.34 - 25.56 ng/mL Mid-luteal 4.44 - 28.03 ng/mL Postmenopausal 0.0 - 0.73 ng/mL : 1st Trimester 11.22 - 90.00 ng/mL 2nd Trimester 25.55 - 89.40 ng/mL 3rd Trimester 48.40 -422.50 ng/mL Performed By: #### L509.3000, L509.4001 #### [facility] [address] [place], [address] XR ABDOMEN 2 VIEWS Observed: 12/05/2017 Status: F Source: HINDUISM 9:55 AM [facility] REPOSITORY Exam Date/Time: 12/05/2017 10:05 EDT Reason for Exam: ABD BLOATING Report STUDY: XR Abdomen 2 Views; 12/05/2017 10:05 am INDICATION: ABD BLOATING. COMPARISON: None. ACCESSION NUMBER(S): [id number] ORDERING CLINICIAN: Cheryle Jackson FINDINGS: 3 views of the abdomen including supine an upright AP views of the abdomen were obtained. There is a nonobstructive bowel gas pattern present. No free intraperitoneal air or air-fluid levels are identified. No definite abnormal calcifications are seen over the abdomen. Rounded calcifications are seen over the pelvis, most consistent with phleboliths. IMPRESSION: Nonobstructive bowel gas pattern. FINAL REPORT Dictated: 12/05/2017 11:32 am Andre Arteaga MD Signed (Electronic Signature): 12/05/2017 11:32 am Signed by: Andre Arteaga MD Technologist: PAUL LUNDBERG HEPATOBILIARY DUCT Observed: 11/22/2017 Status: F Source: HINDUISM Joppel IMAGING W/EF 8:07 AM [facility] REPOSITORY Exam Date/Time: 11/22/2017 09:46 EDT Reason for Exam: EPIGASTRIC PAIN Report HIDA SCAN WITH GALLBLADDER EJECTION FRACTION HISTORY: Abdominal Pain. COMPARISON: Ultrasound 11/13/2017. METHOD: Following IV injection of 6.2 mCi of bwwtwawsfh-96q-Keatzbeq, anterior imaging of the abdomen was acquired for 60 minutes. After the gallbladder was visualized the patient was injected IV with 1.9 mcg of Kinevac and the gallbladder ejection fraction was calculated. FINDINGS: There is satisfactory uptake of radiopharmaceutical by the liver. The gallbladder, bile duct, and bowel are seen in the expected period of time and sequence. The gallbladder ejection fraction is normal at 85%. IMPRESSION: Normal hepatic biliary scintigraphy and gallbladder ejection fraction. FINAL REPORT Dictated: 11/22/2017 1:29 pm Dorian Rogers MD Signed (Electronic Signature): 11/22/2017 1:29 pm Signed by: Dorian Rogers MD Technologist: TRI US ABDOMEN, LIMITED Observed: 11/13/2017 Status: F Source: HINDUISM 9:36 AM [facility] REPOSITORY Exam Date/Time: 11/13/2017 09:56 EDT Reason for Exam: BLOATING RUQ ATTN: GB Report RIGHT UPPER QUADRANT ABDOMINAL ULTRASOUND, 11/13/2017, 9:36 AM INDICATION: BLOATING, RUQ. ATTN: GB COMPARISON: None available. TECHNIQUE: Multiple christianson-scale sonographic images of the right upper quadrant abdominal viscera were obtained. FINDINGS: There is no hepatomegaly or definite mass within the visualized portions of the liver or pancreas. Evaluation of the pancreatic tail is limited by overlying bowel gas. The gallbladder appears unremarkable with no evidence of cholelithiasis, wall thickening or pericholecystic fluid. There is no intra or extrahepatic biliary duct dilatation. The common bile duct measures 3 mm in diameter. The right kidney appears grossly unremarkable. No significant free intraperitoneal fluid is identified. IMPRESSION: Unremarkable right upper quadrant ultrasound. FINAL REPORT Dictated: 11/13/2017 3:49 pm Arash Gr MD Signed (Electronic Signature): 11/13/2017 3:49 pm Signed by: Arash Gr MD Technologist: EDWARD LUNDBERG MYOCARDIAL SPECT Observed: 09/27/2017 Status: F Source: [facility] REST/STRESS 6:27 AM [facility] REPOSITORY Exam Date/Time: 09/27/2017 10:01 EDT Reason for Exam: CHEST PAIN SOB ORD CARLSON Report Nuclear medicine cardiac SPECT stress test with ejection fraction History: Chest pain. COMPARISON: None Method: For the rest portion of the examination, the patient was injected IV with 11.9 mCi Iewgtgzelu-81s-zkhzowjxw and rest SPECT images were acquired. For the stress portion of the examination, the patient followed a Bryce protocol. When the patient reached 85% of their maximal-predicted heart rate, the patient was injected IV with 44 mCi Myiqfnvdlc-09l-hemwqkaqo and stress SPECT images were acquired. Findings: There is shifting breast attenuation. There is relatively normal accumulation of radiopharmaceutical throughout the myocardium on both rest and stress images with no evidence of reversible changes. There is no left ventricular dilatation. The ejection fraction equals 65% with no focal wall motion abnormalities. IMPRESSION: No evidence of exercise stress-induced myocardial ischemia. Ejection fraction equals 65%. FINAL REPORT Dictated: 09/27/2017 3:01 pm Dorian Rogers MD Signed (Electronic Signature): 09/27/2017 3:01 pm Signed by: Dorian Rogers MD Technologist: BELLE HANSON CHEST Observed: 09/16/2017 Status: F Source: HINDUISM 9:35 PM [facility] REPOSITORY Exam Date/Time: 09/16/2017 21:49 EDT Reason for Exam: Shortness of breath (SOB) Report EXAM: CTA Chest CLINICAL STATEMENT: Shortness of breath. COMPARISON: None. TECHNIQUE: CT angiography of the pulmonary arteries following the administration of 75 mL of Omnipaque 350 intravenous contrast. Coronal and sagittal MIP (maximum intensity projection) images were performed. Dose reduction techniques were achieved by using automated exposure control and/or adjustment of mA and/or kV according to patient size and/or use of iterative reconstruction technique. FINDINGS: Lungs: There are no infiltrates or masses. Pleura: No effusions. No pneumothorax. Cardiovascular: No evidence of pulmonary embolism. The heart and aorta are normal. Mediastinum: Normal thyroid, trachea, and esophagus. Lymph nodes: No adenopathy. Breast tissue: Symmetric where visualized. No mass lesions. Musculoskeletal: Unremarkable. No shoulder abnormalities noted. There are no lytic or sclerotic lesions. IMPRESSION: Normal exam. FINAL REPORT Dictated: 09/16/2017 11:52 pm Christopher Clark MD Signed (Electronic Signature): 09/16/2017 11:52 pm Signed by: Christopher Clark MD Technologist: [facility] BNP. Collected: 09/16/2017 Status: F Source: HINDUISM 8:49 PM [facility] REPOSITORY TYPE CODE TESTS RESULT OUT OF RANGE REFERENCE UNITS LAB CD:[id number] <=100 pg/mL 67(LOINC) Normal BNP. 14 Result Comment: Notice: Effective 12/07/2016 the methodology for BNP testing has changed. BNP values less than or equal to 100 pg/mL is considered normal for patients without CHF.The decision threshold was determined by the 95% confidence limit of BNP concentration in the non-CHF population age 55 and older.It is recommended that a new baseline value be established using the new method if monitoring patient's BNP level. Performed By: #### [id number] #### [facility] [employer] [address] [place] [id number] XR CHEST 2 VIEWS Observed: 09/16/2017 Status: F Source: HINDUISM 7:45 PM [facility] REPOSITORY Exam Date/Time: 09/16/2017 19:48 EDT Reason for Exam: Respiratory Distress Report TWO-VIEW CHEST: COMPARISON: Two-view chest from 09/06/2017. REASON FOR STUDY: Respiratory distress. REPORT: The trachea, mediastinum and heart size are unremarkable. The lungs are clear and well aerated. No effusion or nodule or pneumothorax is noted. The diaphragm and bony elements are intact. There is a slight curvature of the thoracic spine. IMPRESSION: Nonacute two-view chest. FINAL REPORT Dictated: 09/16/2017 9:53 pm Christopher Deleon DO Signed (Electronic Signature): 09/16/2017 9:53 pm Signed by: Christopher Deleon DO Technologist: [facility] D-DIMER Collected: 09/16/2017 Status: F Source: HINDUISM 7:33 [facility] REPOSITORY TYPE CODE TESTS RESULT OUT OF RANGE REFERENCE UNITS LAB [id number](LO <=0.50 mg/L FEU INC) Normal D-Dimer 0.30 Result Comment: Normal D Dimer level indicates no Deep Vein Thrombosis (DVT) or Pulmonary Embolism (PE). Elevated D Dimer level indicates additional studies and clinical assessments are indicated to conclude diagnosis of Deep Vein Thromobsis (DVT) or Pulmonary Embolism (PE). Performed By: #### [id number] #### [facility] Hematology Automated [address] [place] [address] TROPONIN-I Collected: 09/16/2017 Status: F Source: HINDUISM 7:33 [facility] REPOSITORY TYPE CODE TESTS RESULT OUT OF RANGE REFERENCE UNITS LAB 91533011(LO .00-.03 ng/mL INC) Normal <.01 Troponin-I Performed By: #### [id number] #### [facility] [place] [address] BMP Collected: 09/16/2017 Status: F Source: HINDUISM 7:33 [facility] REPOSITORY TYPE CODE TESTS RESULT OUT OF RANGE REFERENCE UNITS LAB 54360764(L 70-99 mg/dL OINC) High Glucose Lvl 112 LAB 32322856(L 7-18 mg/dL OINC) BUN Normal 16 LAB 4135057(LO 0.6-1.3 mg/dL INC) Normal Creatinine 0.7 LAB 00406342(L 5.4-30.0 ratio OINC) Normal BUN/Creat Ratio 22.9 LAB 51742048(L 8.4-10.2 mg/dL OINC) Calcium Normal Lvl 10.0 LAB 12492489(L 136-145 mEq/L OINC) Sodium Normal Lvl 139 LAB 38168554(L 3.5-5.1 mEq/L OINC) Normal Potassium Lvl 3.8 LAB 32685517(L 98-107 mEq/L OINC) Chloride Normal 107 LAB 39047737(L 24.0-30.0 mEq/L OINC) CO2 Normal 25.2 Performed By: #### [id number] #### [facility] [employer] [facility] [place] [address] EGFR Collected: 09/16/2017 Status: F Source: HINDUISM 7:33 PM [facility] REPOSITORY Order Comment: Order added by Discern Expert. TYPE CODE TESTS RESULT OUT OF RANGE REFERENCE UNITS LAB 73206284(LO mL/min/1.73 INC) m2 Normal eGFR >60 LAB 33396590(LO mL/min/1.73 INC) m2 Normal eGFR AA >60 Performed By: #### [id number] #### [facility] [place] [address] CBC W/ AUTO DIFF Collected: 09/16/2017 Status: F Source: HINDUISM 7:33 PM [facility] REPOSITORY TYPE CODE TESTS RESULT OUT OF RANGE REFERENCE UNITS LAB 27095931(L 3.6-11.0 E3/mcL OINC) Normal WBC 8.8 LAB 79749086(L 3.90-5.40 E6/mcL OINC) Normal RBC 4.80 LAB 96257165(L 12.0-16.0 G/DL OINC) Normal Hgb 14.4 LAB 32868064(L 36.0-48.0 % OINC) Normal Hct 42.1 LAB 30001889(L 11.5-14.5 % OINC) Normal RDW 13.6 LAB 18951972(L 27.0-31.0 pg OINC) Normal MCH 30.1 LAB 11862060(L 33.0-37.0 G/DL OINC) Normal MCHC 34.3 LAB 27606964(L 78.0-100.0 fL OINC) Normal MCV 87.7 LAB 18417566(L 7.4-11.0 fL OINC) Normal MPV 8.9 LAB 94527734(L 130-400 E3/mcL OINC) Normal Platelet 286 Performed By: #### [id number] #### [facility] [employer] [address] [place] [address] AUTO DIFF Collected: 09/16/2017 Status: F Source: HINDUISM 7:33 PM [facility] REPOSITORY Order Comment: Order Added by Discern Expert. TYPE CODE TESTS RESULT OUT OF RANGE REFERENCE UNITS LAB 05351083(L 37.0-75.0 % OINC) Normal Neutro Auto 58.9 LAB 58870165(L 20.0-55.0 % OINC) Normal Lymph Auto 27.3 LAB 30773709(L 0.0-10.0 % OINC) High [place] Auto 10.6 LAB 97608686(L 0.0-11.0 % OINC) Normal Eos Auto 2.6 LAB 19253651(L 0.0-2.0 % OINC) Normal Basophil Auto 0.6 LAB 82347932(L 1.4-6.5 E3/mcL OINC) Normal Neutro 5.2 Absolute LAB 93864972(L 1.2-3.4 E3/mcL OINC) Normal Lymph Absolute 2.4 LAB 57994799(L 0.0-0.7 E3/mcL OINC) High [place] Absolute 0.9 LAB 17414210(L 0.0-0.7 E3/mcL OINC) Normal Eos Absolute 0.2 LAB 80930661(L 0.0-0.2 E3/mcL OINC) Normal Basophil 0.1 Absolute Performed By: #### [id number] #### [facility] [employer] [address] [place] [address] TSH Collected: 09/16/2017 Status: F Source: HINDUISM 7:33 PM [facility] REPOSITORY TYPE CODE TESTS RESULT OUT OF RANGE REFERENCE UNITS LAB 11717694(LO 0.30-5.60 mIU/m INC) Normal TSH 1.52 Performed By: #### [id number] #### [facility] [employer] [address] [place], [place] [address] XR CHEST 2 VIEWS Observed: 09/06/2017 Status: F Source: HINDUISM 12:30 PM [facility] REPOSITORY Exam Date/Time: 09/06/2017 12:42 EDT Reason for Exam: Chest pain Report CHEST PA, LATERAL HISTORY: Dyspnea. COMPARISON: None FINDINGS: The cardiac size is normal. No hilar or mediastinal enlargement is seen. The lungs are clear. The pulmonary vascularity is normal. No pleural effusion is seen. The thoracic vertebrae are normal in height. IMPRESSION: No acute disease seen on plain films. FINAL REPORT Dictated: 09/06/2017 2:12 pm Daniel Perry MD Signed (Electronic Signature): 09/06/2017 2:12 pm Signed by: Daniel Perry MD Technologist: KAYLEE ALFRED SPINE CERVICAL Observed: 09/06/2017 Status: F Source: HINDUISM COMP FLEX/EXT 12:30 PM [facility] REPOSITORY Exam Date/Time: 09/06/2017 12:42 EDT Reason for Exam: Neck Pain Report CERVICAL SPINE WITH FLEXION AND EXTENSION VIEWS-7 VIEWS HISTORY: Neck pain. FINDINGS: There is loss of cervical lordosis. No spondylolisthesis is seen on flexion or extension. Marked narrowing of the C5-C6 and C6- C7 intervertebral discs is seen, secondary to degenerative disc disease. The pedicles and posterior elements are intact. Narrowing of the right C5-C6 intervertebral neural foramina is present secondary to hypertrophic changes at the uncovertebral joints. IMPRESSION: Marked cervical spondylosis, with degenerative disc disease at C5-C6 and C6-C7 levels and encroachment on the right C5-C6 intervertebral neural foramen by uncovertebral hypertrophic changes. FINAL REPORT Dictated: 09/06/2017 4:13 pm Daniel Perry MD Signed (Electronic Signature): 09/06/2017 4:13 pm Signed by: Daniel Perry MD Technologist: AUBRIE CMP Collected: 09/06/2017 Status: F Source: HINDUISM 11:56 AM [facility] REPOSITORY TYPE CODE TESTS RESULT OUT OF RANGE REFERENCE UNITS LAB 27183614(L 70-99 mg/dL OINC) Glucose Normal Lvl 92 LAB 31376329(L 8.4-10.2 mg/dL OINC) Calcium Normal Lvl 9.9 LAB 72128346(L 136-145 mEq/L OINC) Low Sodium Lvl 134 LAB 98814542(L 3.5-5.1 mEq/L OINC) Normal Potassium Lvl 3.9 LAB 72075482(L 98-107 mEq/L OINC) Chloride Normal 101 LAB 60595065(L 24.0-30.0 mEq/L OINC) CO2 Normal 25.2 LAB 16155525(L 7-18 mg/dL OINC) BUN Normal 17 LAB 8670921(LO 0.6-1.3 mg/dL INC) Normal Creatinine 0.9 LAB 37553195(L 42-121 Int._Unit/ OINC) L Alk Phos Normal 47 LAB 59861862(L 0.2-1.0 mg/dL OINC) Bili Normal Total 0.8 LAB 04163325(L 3.2-5.0 G/DL OINC) Albumin Normal Lvl 4.6 LAB 58694241(L 6.4-8.3 G/DL OINC) Total Normal Protein 7.6 LAB 37832709(L 10-40 Int._Unit/ OINC) L ALT Normal 23 LAB 17779746(L 10-42 Int._Unit/ OINC) L AST Normal 23 LAB 53966184(L 5.4-30.0 ratio OINC) Normal BUN/Creat Ratio 18.9 LAB 67742085(L 2.0-4.0 G/DL OINC) Globulin Normal 3.0 LAB 78175974(L 1.1-1.9 ratio OINC) A/G Normal Ratio 1.5 Performed By: #### [id number] #### [facility] [place] [address] EGFR Collected: 09/06/2017 Status: F Source: HINDUISM 11:56 AM [facility] REPOSITORY Order Comment: Order added by Discern Expert. TYPE CODE TESTS RESULT OUT OF RANGE REFERENCE UNITS LAB 10134283(LO mL/min/1.73 INC) m2 Normal eGFR >60 LAB 34262582(LO mL/min/1.73 INC) m2 Normal eGFR AA >60 Performed By: #### [id number] #### [facility] [address] [place] [id number] CBC W/ AUTO DIFF Collected: 09/06/2017 Status: F Source: HINDUISM 11:56 AM [facility] REPOSITORY TYPE CODE TESTS RESULT OUT OF RANGE REFERENCE UNITS LAB 67893051(L 3.6-11.0 E3/mcL OINC) Normal WBC 8.0 LAB 46039553(L 3.90-5.40 E6/mcL OINC) Normal RBC 4.79 LAB 97653338(L 12.0-16.0 G/DL OINC) Normal Hgb 14.2 LAB 48375479(L 36.0-48.0 % OINC) Normal Hct 42.5 LAB 71586299(L 11.5-14.5 % OINC) Normal RDW 13.6 LAB 88521694(L 27.0-31.0 pg OINC) Normal MCH 29.7 LAB 75703816(L 33.0-37.0 G/DL OINC) Normal MCHC 33.5 LAB 62002126(L 78.0-100.0 fL OINC) Normal MCV 88.7 LAB 05898064(L 7.4-11.0 fL OINC) Normal MPV 9.0 LAB 38158898(L 130-400 E3/mcL OINC) Normal Platelet 275 Performed By: #### [id number] #### [facility] [employer] [address] [place] [address] AUTO DIFF Collected: 09/06/2017 Status: F Source: HINDUISM 11:56 AM [facility] REPOSITORY Order Comment: Order Added by Discern Expert. TYPE CODE TESTS RESULT OUT OF RANGE REFERENCE UNITS LAB 68072185(L 37.0-75.0 % OINC) Normal Neutro Auto 66.0 LAB 05812496(L 20.0-55.0 % OINC) Normal Lymph Auto 22.6 LAB 81038873(L 0.0-10.0 % OINC) Normal [place] Auto 8.6 LAB 50197450(L 0.0-11.0 % OINC) Normal Eos Auto 2.2 LAB 97290013(L 0.0-2.0 % OINC) Normal Basophil Auto 0.6 LAB 37920452(L 1.4-6.5 E3/mcL OINC) Normal Neutro 5.3 Absolute LAB 22207223(L 1.2-3.4 E3/mcL OINC) Normal Lymph Absolute 1.8 LAB 95585357(L 0.0-0.7 E3/mcL OINC) Normal [place] Absolute 0.7 LAB 73985926(L 0.0-0.7 E3/mcL OINC) Normal Eos Absolute 0.2 LAB 14171799(L 0.0-0.2 E3/mcL OINC) Normal Basophil 0.1 Absolute Performed By: #### [id number] #### [facility] [address] [place] [address] SED RATE AUTOMATED Collected: 09/06/2017 Status: F Source: HINDUISM 11:56 AM [facility] REPOSITORY TYPE CODE TESTS RESULT OUT OF RANGE REFERENCE UNITS LAB 53607046(L mm/hr OINC) Sed Normal Rate Automated 16 Result Comment: AGE-SPECIFIC REFERENCE RANGES FOR SEDIMENTATION RATE AUTOMATED REFERENCE RANGE - MM/HR AGE MEN WOMEN 0-2 0-2 - PUBERTY 3-13 3-13 PUBERTY - 50 YRS 0-15 0-20 > 50 YRS 0-20 0-30 Performed By: #### [id number] #### [facility] Hematology Manual Subsection [facility] [place] [id number] US BREAST UNILATERAL Observed: 08/08/2017 Status: F Source: HINDUISM LT LIMITED 9:02 AM [facility] REPOSITORY Exam Date/Time: 08/08/2017 09:23 EST Reason for Exam: inconclusive mammogram Report [place] MAMM DIAG W/CAD IF PERFORMED LT, US BREAST UNILATERAL LT LIMITED, 08/08/2017, 8:37 AM CLINICAL STATEMENT: Left breast asymmetry. COMPARISON: Screening mammogram 07/13/2017 and priors dating back to 06/27/2014. TECHNIQUE: Spot compression and spot magnification CC, ML, and MLO views of the left breast were obtained. Focused ultrasound was obtained. FINDINGS: MAMMOGRAM: Previously noted asymmetry disperses with compression and is not visualized on the ML views. ULTRASOUND: Imaging of the lower outer left breast demonstrates normal background fibroglandular tissue without solid or cystic mass or abnormal shadowing. IMPRESSION: Previously noted asymmetry appears to represent a composite density. BI-RADS 1 - Negative, no evidence of malignancy. Normal interval followup in 12 months. OVERALL ASSESSMENT- NEGATIVE A letter of notification will be sent to the patient regarding the results. Assessment / Recommendation: 1-1 Normal interval follow-up Breast density: Scattered Fibroglandular Density Exam Date/Time: 08/08/2017 09:23 EST Report Recall interval: 012 months FINAL REPORT Dictated: 08/08/2017 11:18 am Zachary Riggins MD Signed (Electronic Signature): 08/08/2017 11:18 am Signed by: Zachary Riggins MD Technologist: EDWARD WADSWORTH MAMM DIAG W/CAD IF Observed: 08/08/2017 Status: F Source: HINDUISM PERFORMED LT 8:37 AM [facility] REPOSITORY Exam Date/Time: 08/08/2017 09:07 EST Reason for Exam: LEFT BREAST ABN MAMMO / WITH LEFT BREAST ULTRASOUND;Abnormal mammogram Report [place] MAMM DIAG W/CAD IF PERFORMED LT, US BREAST UNILATERAL LT LIMITED, 08/08/2017, 8:37 AM CLINICAL STATEMENT: Left breast asymmetry. COMPARISON: Screening mammogram 07/13/2017 and priors dating back to 06/27/2014. TECHNIQUE: Spot compression and spot magnification CC, ML, and MLO views of the left breast were obtained. Focused ultrasound was obtained. FINDINGS: MAMMOGRAM: Previously noted asymmetry disperses with compression and is not visualized on the ML views. ULTRASOUND: Imaging of the lower outer left breast demonstrates normal background fibroglandular tissue without solid or cystic mass or abnormal shadowing. IMPRESSION: Previously noted asymmetry appears to represent a composite density. BI-RADS 1 - Negative, no evidence of malignancy. Normal interval followup in 12 months. OVERALL ASSESSMENT- NEGATIVE A letter of notification will be sent to the patient regarding the results. Assessment / Recommendation: 1-1 Normal interval follow-up Breast density: Scattered Fibroglandular Density Exam Date/Time: 08/08/2017 09:07 EST Report Recall interval: 012 months FINAL REPORT Dictated: 08/08/2017 11:18 am Zachary Riggins MD Signed (Electronic Signature): 08/08/2017 11:18 am Signed by: Zachary Riggins MD Technologist: RUSS Assessment: BI-RADS Category 1-Negative Recommendation: Normal interval follow-up [place] MAMM SCREEN W/CAD Observed: 07/13/2017 Status: F Source: HINDUISM IF PERFORMED BILAT 12:03 PM [facility] REPOSITORY Exam Date/Time: 07/13/2017 12:44 EST Reason for Exam: SCREENING Report BILATERAL DIGITAL SCREENING MAMMOGRAMS WITH CAD COMPARISON: 07/06/2016, 07/01/2015 and 06/27/2014. FINDINGS: An asymmetric density is seen, in the posterior depth of the left breast on the MLO projection in the line with the nipple about 7 cm from the nipple, also marked by CAD. This should be evaluated further with spot and magnification views. There is also an area of increased density, which is probably overlapping parenchyma in the lateral portion of the breast in the posterior depth. No microcalcifications are present. The right breast is unremarkable. No nipple retraction or abnormal skin thickening is seen. There is no lymphadenopathy in the axilla. IMPRESSION: Asymmetric areas in the left breast, one located in the posterior depth of the breast in the line of the nipple and the other more laterally in the CC view. Further evaluation with spot and magnification views of the areas marked on the left breast are recommended. BI-RADS 0 - Need additional imaging evaluation at this time. OVERALL ASSESSMENT- NEED ADDITIONAL IMAGING EVALUATION. A letter of notification will be sent to the patient regarding the results. Assessment / Recommendation: 0-1 Additional projections Breast density: Scattered Fibroglandular Density Recall interval: Now FINAL REPORT Dictated: 07/13/2017 5:26 pm Daniel Perry MD Signed (Electronic Signature): 07/13/2017 5:26 pm Signed by: Daniel Perry MD Technologist: LORETTA Assessment: BI-RADS Category 0-Incomplete: Need additional imaging evaluation Recommendation: Additional projections PAP I-G W/RFX HRHPV Collected: 07/13/2017 Status: F Source: CHAU 10:30 AM [facility] REPOSITORY Order Comment: CYTOLOGY INFORMATION: - CLINICAL INFORMATION: - DATE LMP/MENOPAUSE: 06/24/17 - COLLECTION VIAL: Thin Prep Vial - LEAD DATABASE ADMINISTRATOR SOURCE: CERVICAL/ENDOCERVICAL - COLLECTION TECHNIQUE: BRUSH/SPATULA Specimen Comment: [id number] Specimen Comment: No. of containers..01 ThinPrep Vial TYPE CODE TESTS RESULT OUT OF RANGE REFERENCE UNITS LAB L7400.0800 . Normal DIAGN Comment Result Comment: NEGATIVE FOR INTRAEPITHELIAL LESION AND MALIGNANCY. LAB L7400.0900 . Normal ADEQ Comment Result Comment: Satisfactory for evaluation. Endocervical and/or squamous metaplastic cells (endocervical component) are present. LAB L7400.1400 . Normal PERFORM Comment Result Comment: Shona Fletcher Bungy Jump Master (ASCP) LAB L7400.2575 . Normal TEST METHOD Comment Result Comment: This liquid based ThinPrep(R) pap test was screened with the use of an image guided system. LAB L7400.2600 . Normal . COMM LAB L7400.2700 . Normal PAPSMR Comment Result Comment: The Pap smear is a screening test designed to aid in the detection of premalignant and malignant conditions of the uterine cervix. It is not a diagnostic procedure and should not be used as the sole means of detecting cervical cancer. Both false-positive and false-negative reports do occur. LAB L7400.2800 . Normal HPV RFLX Comment Result Comment: The HPV DNA reflex criteria were not met with this specimen result therefore, no HPV testing was performed. Performed at: [facility] [id number] Smt Machine Operator: Payal Stewart MD, Phone: [phone] Performed By: #### L7400.0350 #### [facility] (refer to report for specific site) refer to report for address and phone number ALLERGIES ALLERGIES DATE TYPE / CODE NAME / CODE REACTION SEVERITY SOURCE 01/12/2018 Drug Penicillins/T99281 Rash Unknown Chau Allergy/416 0476(RXNORM) [facility] 793396([facility] ED [facility]) Repository 01/12/2018 Drug Sulfa (Sulfonamide Rash Unknown Chau Allergy/416 Antibiotics)/F0010 [facility] 165945([facility] [address] Repository Drug/538482 penicillins [id number] [facility] 003([facility] CT) System Repository Drug/983009 sulfa drugs [id number] Baptist 003([facility] CT) System Repository Drug/177218 penicillins Baptist 003([facility] CT) System Repository Drug/623250 sulfa drugs [facility] 003([facility] CT) System Repository ENCOUNTERS ENCOUNTERS ADMIT/DISCHARGE ACCOUNT NUMBER ADMITTING ENCOUNTER LOCATION SOURCE CLASS 05/28/2018 [id number] [facility] ing:OPBI Repository 04/23/2018/ [id number] Dion Hager [facility] [address] [place] [address] ing:.[facility] Repository 04/23/2018 [id number] Zumbar, Ambulatory [facility] ing:[facility] Repository 04/23/2018/ [id number] Zumbar, Ambulatory [facility] 018 [place] [facility] ing:[facility] Repository 04/23/2018 [id number] Ambulatory [address] [place] [address] Repository 04/11/2018 [id number] Sonaumbar, Ambulatory [facility] ing:[facility] Repository 03/28/2018/ [id number] Neto, Ambulatory [facility] 018 [place] [facility] ing:[facility] Repository 03/28/2018 [id number] Ambulatory [address] [place] [address] Repository 03/27/2018/ [id number] Ambulatory [facility] 018 [facility]: System Med Repository AssocRoom: Room 3 03/21/2018/ [id number] Andrade Briseno Ambulatory Andrade Thomae, Baptist 018 DOBuilding:[facility] Health Room 2 System Repository 01/26/2018/ [id number] Andrade Briseno Ambulatory [facility] 018 Hospital[facility] Regional ing:[facility] Health System Repository 01/26/2018 [id number] Ambulatory [address] [place] [address] Repository 01/12/2018/ [id number] Ambulatory Chau [address] HospitalBuild Hospital ing:SDCRoom: Repository AC02 12/22/2017/ [id number] Ambulatory [facility] 018 [facility]: System Med Assoc Repository 12/16/2017 [id number] Ambulatory [facility] Hospital[facility] Hospital ing:US Repository 12/14/2017 [id number] Ambulatory [facility] Hospital[facility] Hospital ing:WOBLAB Repository 12/07/2017/ [id number] Ambulatory Andrade Thomae, Baptist 018 DOBuilding:[facility] Repository 12/05/2017/ [id number] Cheryle Jackson Ambulatory [facility] 018 Hospital[facility] Regional ing:[facility] System Repository 12/05/2017 [id number] Ambulatory [address] [place] [address] Repository 11/22/2017/ [id number] Cheryle Jackson Ambulatory [facility] 018 Hospital[facility] Regional ing:[facility] System Repository 11/22/2017 [id number] Ambulatory [address] [place] [address] Repository 11/13/2017/ [id number] Cheryle Jackson Ambulatory [facility] 018 Hospital[facility] Regional ing:[facility] System Repository 11/10/2017 [id number] Manuel Brendan Ambulatory [facility] Repository 10/26/2017 [id number] Ambulatory Building:[facility] Repository 10/04/2017/ [id number] Ambulatory [facility] 018 [facility]oc Repository 09/27/2017/ [id number] Carlson, Ambulatory [facility] 018 [place] [facility] ing:[facility] System Repository 09/19/2017/ [id number] Ambulatory [facility] 018 [facility]oc Repository 09/16/2017/[id number] Bon, Emergency [facility] 018 [facility] Hospital[facility] Regional ing:[facility] EDRoom: System Repository 09/06/2017/ [id number] Neto, Ambulatory [facility] 018 [place] [facility] ing:[facility] System Repository 09/06/2017/ [id number] Ambulatory [facility] 018 [facility] Med Assoc Repository 08/12/2017/ [id number] Remberto Bundy Ambulatory QCareBuilding [facility] 018 :QCareRoom: [facility] 3 Health System Repository 08/08/2017/ [id number] Juanis Brown [facility] 018 M [facility] ing:[facility] Health System Repository 07/13/2017/ [id number] Juanis Brown [facility] 018 M [facility] ing:[facility] Health System Repository 07/13/2017 [id number] Ambulatory Chau Chau [facility] ing:LABSPEC Repository PAYERS PAYERS ENCOUNTER GUARANTOR PAYER SUBSCRIBER SOURCE 05/28/2018 VY Black [id number] Primary SAMAN D [place] [address], Insurance:ANTHEMPolic CLINEDOB: [facility] [place] [address]Zfq: y Number: [id number] Hospital [id number] Repository (HP) Date:2301-28-22QB[address] [address]QT: 05/28/2018 Secondary NOT GIVENUNK [place] Insurance:SELF PAY [facility] Number: Effective Repository Date:2018-05-21 04/23/2018 RIGO J Primary SAMAN Crooks CLINEDOB: Insurance:ANTHEMPolic CLINEDOB: [facility] y Number: Effective [id number] System [facility] [address] Date:2018-04-23 - [facility] [address] Repository [address] [place] [address] [id number] [address] [place], [place] [address]Tel: Name:[address]Tel: [address] [place] [address] () 96[address]BY: [phone]) () [phone] () 04/23/2018 RIGO J Primary SAMAN Brian Crooks CLINEDOB: Insurance:ANTHEMPolic CLINEDOB: [facility] y Number: Effective [id number] System [facility] Date:2018-04-23 - [facility] Repository [address] [place] [address] [id number] [address] [place], [place] [address]Tel: Name:[address]9221Tel: KARMEN MD (HP) 500[address]UT: [phone]) (HP) [phone] (WP) 04/23/2018 RIGO Black Primary SAMAN Crooks CLINEDOB: Insurance:ANTHEMPolic CLINEDOB: [facility] y Number: Effective [id number] [facility] [address] Date:2018-04-11 - [facility] Repository [address] [place] [address] [id number] [address] [place], [place] [address]Tel: Name:Tiny Post [address]9221Tel: [place] (HP) [phone]: [phone]) (HP) [phone] (WP) 04/23/2018 RIGO CLINEDOB: [facility] CLINEDOB: [place] Insurance:AnthemPolic [id number] [facility] y Number: [facility] [address] Repository [address] [place] [address] [id number] [address] [place] [address] [id number]: Date:Plan Name:[facility] [id number]: (HP) (HP) 04/11/2018 RIGO Black Primary SAMAN Crooks CLINEDOB: Insurance:ANTHEMPolic CLINEDOB: [facility] y Number: Effective [id number] [facility] [address] Date:2018-04-11 - [facility] Repository [address] [place] [address] [id number] [address] [place], [place] [address]Tel: Name:Tiny Post [address]9221Tel: [id number], MD (HP) 66606FX: [phone]) (HP) [phone] (WP) 03/28/2018 RIGO J Primary SAMAN Crooks CLINEDOB: Insurance:ANTHEMPolic CLINEDOB: [facility] y Number: Effective [id number] [facility] Date:2018-03-28 - [facility] Rep[facility] [address] [place] [address] [id number] [address] [place], [place] [address]Tel: Name:Brian Chisholm[address]9221Tel: [id number], MD (HP) [address]NX: [phone]) (HP) [phone] (WP) 03/28/2018 RIGO CLINEDOB: [facility] CLINEDOB: [place] Insurance:AnthemPolic [id number] Hospitals [facility] [address] y Number: [facility] Repository [address] [place] [address] [id number] [address] [place] [address] [id number]: Date:Plan Name:[place] [id number]: () () 03/27/2018 RIGO Sofia Primary SAMAN Crooks CLINEDOB: Insurance:1500 CLINEDOB: [facility] ANTHEMPolicy Number: [id number] [facility] Effective [facility] Repository [address] [place] [address] Date:2018-03-[address] [place], [place] [address]Tel: [id number] [address]Wmu: Name:CD:[id number] O () [address]JUTKCSY, [place] ()Tel: [phone]: (WP) [phone] 03/21/2018 RIGO J Primary SAMAN Crooks CLINEDOB: Insurance:1500 CLINEDOB: [facility] ANTHEMPolicy Number: [id number] System [facility] Effective [facility] Repository [address] [place] [address] Date:2018-03-21 [place] [address]Tel: [id number] [address]Qjs: Name::[id number] () [address]CFKYNPC, [place] ()Tel: [phone]: (WP) [phone] 01/26/2018 RIGO Black Primary SAMAN D Baptist CLINEDOB: Insurance:ANTHEMPolic CLINEDOB: [facility] y Number: Effective [id number] System [facility] Date:2018-01-19 - [facility] Repository [address] [place] [address] [id number] [address] [place] [address]Tel: Name:[place] [address]Tel: [place] () 20692WL: [phone]) () [phone] (WP) 01/26/2018 RIGO CLINEDOB: [facility] CLINEDOB: [place] Insurance:AnthemPolic [id number] [facility] y Number: [facility] Repository [address] [place] [address] [id number] [address] [place] [address] [id number]: Date:Plan Name:[place] [id number]: () () 01/12/2018 VY Black [id number] Primary SAMAN D [place] [address] [place] [address], Insurance:ANTHEMPolic CLINEUNK [facility] [address]Hdx: y Number: [facility] [id number] Repository () Date:4218-11-04QP [address]YXYIYDCCHINA BREWER [address]ZR: 01/12/2018 Secondary NOT GIVENUNK Chau Insurance:SELF PAY [facility] Number: Effective Repository Date:2018-01-01 12/22/2017 RIGO Black Primary SAMAN D Baptist CLINEDOB: Insurance:1500 CLINEDOB: [facility] ANTHEMPolicy Number: [id number] Repository [address] [place] [address] Date:2017-12-[address] [place] [address]Mrb: [id number]: Name::[id number] () [address] [place] [address] ()Tel: [phone]) [phone]: (wp) [phone] 12/16/2017 VY [id number] Primary SAMAN D Chau [address] [place] [address], Insurance:ANTHEMPolic [facility] [address]Mis: y Number: [facility] [id number] Repository () Date:6889-80-38KT [address] [place] [address]99[address]BK: 12/16/2017 Secondary NOT GIVENUNK [place] Insurance:SELF PAY [facility] Number: Effective Repository Date:2017-12-14 12/14/2017 Vy La751 Primary SAMAN D [place] [address] [place] [address] Insurance:ANTHEMPolic CLINEUNK [facility] [address]Gaa: 562) y Number: [facility] [phone] () [id number] Repository Date:8029-82-74RN [address] [place] [address]ME: 12/14/2017 Secondary NOT GIVENUNK Chau Insurance:SELF PAY [facility] Number: Effective Repository Date:2017-12-14 12/07/2017 RIGO Black Primary SAMAN Crooks CLINEDOB: Insurance:1500 CLINEDOB: [facility] ANTHEMPolicy Number: [id number] Repository [address] [place] [address] Date:2017-10-[address] [place] [address]Isv: [id number] [address]Huy: Name:CD:[id number] O (HP) BOX [place] (HP)Tel: [phone]: (WP) [phone] 12/05/2017 RIGO Black Primary SAMAN Crooks CLINEDOB: Insurance:ANTHEMPolic CLINEDOB: [facility] y Number: Effective [id number] [facility] [address] Date:2017-11-30 - [facility] [address] Repository [address] [place] [address], [place] [id number] [address] [place] [address], [facility]Dey: Name:Brian [address]9221Tel: [place] (HP) [address]XO: [phone]) (HP) [phone] (WP) 12/05/2017 RIGO CLINEDOB: [facility] CLINEDOB: [place] Insurance:AnthemPolic [id number] [facility] [address] y Number: [facility] [address] Repository [address] [place] [address] [id number] [address] [place] [address] [id number]: Date:Plan Name:[facility] [id number]: () () 11/22/2017 RIGO Black Primary SAMAN Torres [facility] CLINEDOB: Insurance:ANTHEMPolic CLINEDOB: [facility] y Number: Effective [id number] System [facility] Date:2017-11-15 - [facility] Repository [address] [place] [address], [place] [id number] [address] [place] [address], [facility]Rbg: Name:Brian [address]9221Tel: [place] (HP) 18[address]FI: [phone]) (HP) [phone] (WP) 11/22/2017 RIGO CLINEDOB: Primary [facility] CLINEDOB: [facility] Insurance:AnthemPolic [id number] Hospitals [facility] [address] y Number: [facility] Repository [address] [place] [address] [id number] [address] [place] [address] [id number]: Date:Plan Name:[place] [id number]: (HP) (HP) 11/13/2017 RIGO [facility] CLINEDOB: Insurance:ANTHEMPolic CLINEDOB: [facility] y Number: Effective [id number] System [facility] [address] Date:2017-11-10 - [facility] [address] Repository [address] [place] [address] [id number] [place] [address]Hvr: Name:[address]221Tel: [place] (HP) [phone]: [phone]) (HP) [phone] () 11/10/2017 RIGO Sofia [facility] CLINEDOB: Insurance:AnthemPolic CLINEDOB: Hospitals y Number: [id number] Repository [facility] [address] [id number] [address] Date:Plan Name:[address] [address]Kca: (278) 703[address]Tel: (HP) [phone] (HP) 10/26/2017 RIGO [facility] CLINEDOB: Insurance:ANTHEMPolic CLINEDOB: Three Repository y Number: [id number] [facility] [address] [id number] [address] Date:7303-83-71CB[address] [address]Zxy: (363) [address]67[address], [place] [address]Asc: (HP) [address]AV: () [phone] 10/04/2017 RIGO Crooks CLINEDOB: Insurance:1500 CLINEDOB: [facility] ANTHEMPolicy Number: [id number] System [facility] [address] Effective [address] Repository [address] [place] [address], [place] Date:2017-10-04 - [address] [place], [place] [address]Tel: [id number] [address]Laf: Name:CD:[id number] O (HP) BOX [place] (HP)Tel: [phone]: (WP) [phone] 09/27/2017 RIGO Crooks CLINEDOB: Insurance:ANTHEMPolic CLINEDOB: [facility] y Number: Effective [id number] System [address] Date:2017-09-19 - [address] Repository [address] [place] [address] [id number] [address] [place], [place] [address]Tel: Name:Brian PhanPO [address] [address]Vdt: [place] (HP) [address]BS: [phone]) (HP) [phone] (WP) 09/19/2017 RIGO Crooks CLINEDOB: Insurance:1500 CLINEDOB: [facility] ANTHEMPolicy Number: [id number] System [facility] [address] Effective [facility] Repository [address] [place] [address], [place] Date:2017-09-19 - [address] [place], [place] [address]Tel: [id number] [address]Mai: Name:CD:[id number] O (HP) BOX [place] (HP)Tel: [phone]) [phone]: (WP) [phone] 09/16/2017 RIGO Black Primary SAMAN Crooks CLINEDOB: Insurance:ANTHEMPolic CLINEDOB: [facility] y Number: Effective [id number] System [facility] [address] Date:2017-09-16 - [facility] [address] Repository [address] [place] [address] [id number] [address] [place], [place] [address]Tel: Name:Brian MALAGON [address]Kxc: [place] (HP) [address]CZ: [phone]) (HP) [phone] (WP) 09/06/2017 RIGO Black Primary SAMAN Crooks CLINEDOB: Insurance:ANTHEMPolic CLINEDOB: [facility] y Number: Effective [id number] System [facility] [address] Date:2017-09-06 - [facility] Repository [address] [place] [address] [id number] [address] [place], [place] [address]Tel: Name:Brian Chisholm VESNA [address]Rqf: [place] (HP) [address]KD: [phone]) (HP) [phone] (WP) 09/06/2017 RIGO Black Primary SAMAN Crooks CLINEDOB: Insurance:1500 CLINEDOB: [facility] ANTHEMPolicy Number: [id number] System [facility] [address] Effective [facility] Repository [address] [place] [address] Date:2017-08-24 - [address] [place] [address] [id number]: [id number] [address]Vhq: Name:CD:[id number] O (HP) BOX [place] (HP)Tel: [phone]) [phone]: (WP) [phone] 08/12/2017 RIGO Black Primary SAMAN D Baptist CLINEDOB: Insurance:1500 CLINEDOB: [facility] ANTHEMPolicy Number: [id number] System [facility] [address] Effective [facility] Repository [address] [place] [address] Date:2017-08-12 - [address] [place] [address] [id number]: [id number] [address]Jvu: Name:CD:[id number] O (HP) BOX [place] (HP)Tel: [phone]) [phone]: (WP) [phone] 08/08/2017 RIGO Black Primary SAMAN D Baptist CLINEDOB: Insurance:ANTHEMPolic CLINEDOB: [facility] y Number: Effective [id number] System [facility] [address] Date:2017-07-14 - [facility] [address] Repository [address] [place] [address] [id number] [address] [place] [address]Nbu: Name:Brian Chisholm [address] [address]Pux: [place] (HP) [address]DZ: ([phone]) (HP) [phone] (WP) 07/13/2017 RIGO Black Primary SAMAN D Baptist CLINEDOB: Insurance:ANTHEMPolic CLINEDOB: [facility] y Number: Effective [id number] System [facility] Date:2017-03-08 - [facility] [address] Repository [address] [place] [address] [id number] [address] [place] [address] [id number]: Name:Brian Ch[address]PO [address] [address]Zdn: [place] (HP) [address]SQ: [phone]) (HP) [phone] (WP) 07/13/2017 Vy [id number] TR Primary SAMAN D Chau[address] Insurance:ANTHEMPolic CLINEUNK [place] [id number]: . (HP) y Number: [facility] [id number] Repository Date:1139-08-16XG [address]BXWQTYK, [place] [address]GU: 07/13/2017 Secondary NOT GIVENUNK Chau Insurance:SELF PAY [facility]: Effective Repository Date:2017-07-13
== END ==
PROVIDERS: PCP Family Medicine; Referring Provider Obstetrics & Gynecology; Visit Provider Obstetrics & Gynecology
DX: N64.9 Disorder of breast, unspecified (principal); Z80.3 Family history of malignant neoplasm of breast
CPT/HCPCS: 76642; 77062; 77066; G0279

== ENCOUNTER → 2018-06-16 08:44 | Outpatient (CLI) | payer BC, SELFPAY ==
--- NOTE | 2018-06-16 08:48 | US_ITS ---
STUDY: ULTRASOUND OF THE FEMALE PELVIS - COMPLETE REASON FOR EXAM: Female, 48 years old. Follow-up DTC December 2017. LMP: June 12, 2018 TECHNIQUE: Transabdominal and Transvaginal, the latter plate for improved visualization. TECHNICAL QUALITY: Adequate. COMPARISON: None. FINDINGS: The uterus is anteverted and is tilted to the right side of the pelvis. The uterus measures 10.8 x 6.5 x 4.6 cm. There were a few subcentimeter Nabothian cysts of the cervix. The endometrium measures 9.2 mm in thickness, and is hyperechoic. There is no demonstrated endometrial mass. There is no demonstrated myometrial mass. I.U.D. - The patient does not have an I.U.D. The right ovary is visualized. The right ovary measures 4.3 x 3.4 x 2.4 cm. This includes a 2.4 x 2.3 x 2.4 cm hypoechoic/cystic lesion with an eccentric septation. There is no other visualized right adnexal mass or complex lesion. There is normal arterial and normal venous vascularity. The left ovary is visualized. The left ovary measures 4.4 x 2.9 x 2.6 cm. This includes a 3.2 x 1.7 x 1.6 cm simple appearing cyst. There is no visualized left adnexal mass or complex lesion. There is normal arterial and normal venous vascularity. There is no fluid in the cul-de-sac. Polycystic ovary disease: No. US/Transvaginal Non- IMPRESSION: 1. Unremarkable uterus. Endometrial thickness is within normal limits and the endometrial cyst seen on previous study are not apparent today. 2. The complex right ovarian lesion on prior study is not apparent today. A right ovarian cyst, also seen on prior exam, now includes an internal septation and a greater degree of internal echogenicity that may be hemorrhage or proteinaceous debris. 3. 3.2 cm dominant follicular cyst in the left ovary. Electronically Signed: Balwinder Estrada MD at 10:48 EST , Service support ,
--- NOTE | 2018-06-16 08:48 | US_ITS ---
STUDY: ULTRASOUND OF THE FEMALE PELVIS - COMPLETE REASON FOR EXAM: Female, 48 years old. Follow-up DTC December 2017. LMP: June 12, 2018 TECHNIQUE: Transabdominal and Transvaginal, the latter plate for improved visualization. TECHNICAL QUALITY: Adequate. COMPARISON: None. FINDINGS: The uterus is anteverted and is tilted to the right side of the pelvis. The uterus measures 10.8 x 6.5 x 4.6 cm. There were a few subcentimeter Nabothian cysts of the cervix. The endometrium measures 9.2 mm in thickness, and is hyperechoic. There is no demonstrated endometrial mass. There is no demonstrated myometrial mass. I.U.D. - The patient does not have an I.U.D. The right ovary is visualized. The right ovary measures 4.3 x 3.4 x 2.4 cm. This includes a 2.4 x 2.3 x 2.4 cm hypoechoic/cystic lesion with an eccentric septation. There is no other visualized right adnexal mass or complex lesion. There is normal arterial and normal venous vascularity. The left ovary is visualized. The left ovary measures 4.4 x 2.9 x 2.6 cm. This includes a 3.2 x 1.7 x 1.6 cm simple appearing cyst. There is no visualized left adnexal mass or complex lesion. There is normal arterial and normal venous vascularity. There is no fluid in the cul-de-sac. Polycystic ovary disease: No. US/Pelvic (Non ) IMPRESSION: 1. Unremarkable uterus. Endometrial thickness is within normal limits and the endometrial cyst seen on previous study are not apparent today. 2. The complex right ovarian lesion on prior study is not apparent today. A right ovarian cyst, also seen on prior exam, now includes an internal septation and a greater degree of internal echogenicity that may be hemorrhage or proteinaceous debris. 3. 3.2 cm dominant follicular cyst in the left ovary. Electronically Signed: Balwinder Estrada MD at 10:48 EST , Service support ,
== END ==
PROVIDERS: PCP Family Medicine; Referring Provider Obstetrics & Gynecology; Visit Provider Obstetrics & Gynecology
DX: N93.8 Other specified abnormal uterine and vaginal bleeding (principal)
CPT/HCPCS: 76830; 76856; 93976

== ENCOUNTER → 2018-09-26 10:48 | Outpatient (CLI) | payer BC, SELFPAY ==
[2018-01-12 07:35] VITALS: BMI 30.6
[2018-09-28 13:26] LABS: HPV Reflexed? NOT INDICATED
== END ==
PROVIDERS: PCP Family Medicine; Visit Provider Obstetrics & Gynecology
DX: Z12.4 Encounter for screening for malignant neoplasm of cervix (principal)
CPT/HCPCS: 88175; G0145

== ENCOUNTER → 2019-05-15 09:16 | Outpatient (CLI) | payer BC, SELFPAY ==
[2019-05-15 09:09] VITALS: BMI 30.6
[2019-05-15 09:36] LABS: Absolute Lymphocyte Count 1.88 X10^3/uL (0.83-4.51); Absolute Neutrophil Count 4.6 X10^3/uL (2.0-7.7); Basophil# 0.06 X10^3/uL; Basophil% 0.8 % (0-1); Eosinophils% 2.7 % (0-5); Hematocrit 43.5 % (37-47); Hemoglobin 14.4 g/dL (12.0-15.0); Lymphocyte # 1.88 X10^3/ul (4.0); Lymphocyte % 24.9 % (19-41); Mean Corp Hgb Conc 33.1 g/dL (32-36); Mean Corpuscular Hgb 29.2 pg (27.0-32.0); Mean Corpuscular Volume 88.2 fL (81-99); Monocyte# 0.81 X10^3/uL; Monocyte% 10.7 % (0-10); NRBC Flagged by Analyzer 0 % (0-5); Neutrophil # 4.57 X10^3/uL (2.7-7.7); Neutrophil % 60.6 % (47-70); Platelet Count 271 K/mm3 (150-450); RBC Distribution Width SD 41.9 fl (35.1-43.9); Red Blood Count 4.93 M/mm3 (4.2-5.4); White Blood Count 7.5 K/mm3 (4.4-11.0)
[2019-05-15 09:57] LABS: T4 Free Direct 0.87 ng/dL (0.76-1.46); Thyroid Stim Hormone (TSH) 1.32 uIU/mL (0.358-3.74)
== END ==
PROVIDERS: PCP Family Medicine; Referring Provider Obstetrics & Gynecology; Visit Provider Obstetrics & Gynecology
DX: N93.9 Abnormal uterine and vaginal bleeding, unspecified (principal)
CPT/HCPCS: 36415; 84439; 84443; 85025

== ENCOUNTER 2019-06-04 05:27 | Day surgery (SDC) | payer BC, SELFPAY ==
[2019-05-15 09:09] VITALS: BMI 30.6
[2019-06-04] VITALS (13 sets, daily range): BP systolic 84–142; BP diastolic 50–84; PULSE 52–79; RESP 14–18; TEMP 36.5–36.8; O2SAT 97–100; BMI 33.0
--- NOTE | 2019-06-04 05:46 | HP.PCM_ITS ---
- Problem List (1) Abnormal uterine bleeding Status: Acute Comment: failed progesterone therapy. plan LAVH BS cysto. prev cs x 2. 10 cm uterus History and Physical Date of Admission: 06/04/19 Intake Vital Signs 05/15/19 Body Mass Index (BMI) 30.6 05/15/19 Height 5 ft 7 in 05/15/19 Weight: 210 lb 05/15/19 Body Mass Index (BMI) 32.8 05/15/19 Blood Pressure 140/90 H Intake Visit Reasons: pre op LAVH BS cysto Chief Complaint: pre op LAVH BS Cysto Knockup Worker Required: No Is patient in pain?: No Allergies Penicillins [PCN] Allergy (Verified 01/12/18 07:33) Rash Sulfa (Sulfonamide Antibiotics) Allergy (Verified 01/12/18 07:33) Rash Medications Multivitamin [Multiple Vitamins] 1 ea PO DAILY 01/05/18 [History Confirmed 05/15] Pantoprazole Sodium [Protonix] 40 mg PO BID 01/05/18 [History Confirmed 05/15/19] Polyethylene Glycol 3350 [Miralax] 17 gm PO DAILY 01/05/18 [History Confirmed 05/15/19] Is last menstrual period known: No [facility] Surgical History (Updated 05/15/19 @ 09:02 by Jeimy Reyes MD) delivery delivered (Acute) H/O dilation and curettage (Acute) Social History (Updated 05/15/19 @ 09:09 by Jeimy Reyes MD) Smoking Status: Never smoker alcohol intake: never substance use type: does not use caffeine: Yes what type of physical activity do you participate in: walking seatbelt use: always do you feel safe at home: Yes HPI pre op LAVH BS cysto: Details: MARY KAY LA is a 49 year old who presents for preoperative consultation. she has a history of AUB and irregular menses. she was seen by dr peralta in the past and has been on progesterone, was recommended to have a hysterectomy. she denies any other significant complaints. she has severe cramping and heavy bleeding through pads. Female Reproductive History Cycle Length: 21-35 Bleeding Duration: 7 Questions: Metorrhagia: No, Sexually active: Yes, Dyspareunia: No, PCB: No Pregancy History Past Pregnancies Del. Date Name GA/Weeks Outcome Route Bth Weight Infant Gen Labor Lgth Anesthesia [facility] Provider FOB Unknown Kenneth Bryant Const Constitutional: Denies fatigue, fever(s), headache(s), increased appetite, poor appetite, weight gain or weight loss ENT ENT: Denies dizziness or dry mouth Cardio Card: Denies chest pain Resp Resp: Denies cough or dyspnea GI GI: Reports as per HPI; denies abdominal pain, constipation, nausea or vomiting : Reports as per HPI; denies difficulty urinating, painful urination, nipple discharge, urinary frequency, urinary incontinence, urinary hesitancy, urinary urgency, vaginal discharge, vaginal dryness, vaginal odor or vaginal itching Musc Musc: Denies joint pain, back pain or muscle weakness Skin Skin/Breast: Denies change in hair, breast lump, breast pain, breast skin changes or nipple discharge Neuro Neuro: Denies dizziness Psych Psych: Denies anxiety or depression Endo Endo: Denies cold intolerance, excessive sweating, heat intolerance or increased thirst Mehul/Lymph Hematologic/Lymphatic: Denies easy bleeding, Denies easy bruising, Denies enlarged lymph nodes Exam Const General: cooperative, healthy appearing, comfortable, no acute distress, well developed Nutritional Appearance: average body habitus Orientation: alert [facility] Head: normal to inspection, normocephalic Ears: hearing grossly normal bilaterally, external ears normal Nose: external nose normal, nares normal Face and sinus: normal facial exam Neck Neck: normal visual inspection, no lymphadenopathy, trachea midline Thyroid: thyroid normal Chest Chest palpation & inspection: normal inspection of the chest Resp Effort & Inspection: normal respiratory effort Auscultation: clear to auscultation bilaterally Cardio Rate: regular rate Rhythm: regular rhythm Heart Sounds: S1 normal, S2 normal GI Inspection: normal to inspection, non-distended Palpation: soft, no hepatosplenomegaly General: bladder normal to palpation External Female Exam: normal external appearance, normal appearance of the urethra Urethra: normal appearance of the urethra, normal palpation, no discharge Speculum Exam - Vagina: normal appearance of the vagina, normal vaginal dis charge Speculum Exam - Cervix: normal appearance of the cervix, nontender Bimanual Exam- Vagina & Uterus: normal bimanual exam, normal vaginal palpation, uterine size normal, bladder normal to palpation, uterine shape normal, No cervical tenderness, uterine mobility normal, uterine consistency normal, normal cervical palpation, uterus non-tender Bimanual Exam- Adnexa, other: normal adnexae, adnexae mobile, no adnexal masses, pelvic support normal Pelvic Support: normal Musc Cervical Spine: other Other: gross motor intact no deficits, full bilateral strength Skin General: no rashes or lesions noted Neuro General: alert, awake, moves all extremities, no focal motor deficits Motor: muscle tone normal throughout Extrem General: normal to inspection, no pedal edema Psych Appearance: grossly normal Mental Status: mental status grossly normal Affect: normal affect Speech and Movement: speech and movement normal Assessment & Plan Problems 1. Abnormal uterine bleeding N93.9 failed progesterone therapy. plan LAVH BS cysto. prev cs x 2. 10 cm uterus Plan After discussing the patient's diagnosis and treatment plan options, patient wishes to proceed with surgical management. I have discussed with the patient the risks, benefits, and alternatives of the procedure which include but are not limited to risks of anesthesia, bleeding, infection, possible damage to bowel, bladder, or surrounding vasculature which could lead to additional surgery to evaluate any complications. Patient agrees to procedure and wishes to proceed. ACOG/uptodate references given for additional information regarding procedure. Coding Level of Care Code Off vis,new,level 4 Diagnoses Abnormal uterine bleeding N93.9 UPDATE- I have seen the patient and performed any clinically relevant updates to the history and physical exam. Jeimy Reyes MD
--- NOTE | 2019-06-04 06:02 | PCM.OPRPT ---
Problem List (1) Abnormal uterine bleeding Status: Acute Comment: failed progesterone therapy. plan LAVH BS cysto. prev cs x 2. 10 cm uterus Report of Operation Date of Procedure: 06/04/19 Pre-Operative Diagnosis: aub Post-Operative Diagnosis: same Surgery/Procedure Performed:: lavh bs cysto Description of Surgical Findings:: omental to anterior abdominal wall adhesions, vesicouterine adhesions aluminum molder: Cheryle Alexandre Type of Anesthesia:: General Special Medications: none Specimen's removed: uters tubes Drains: juarez Estimated Blood Loss (mL): 100 Fluids Replaced: crystalloid Description of Procedure: Patient received preoperative antibiotics and SCDs were on preoperatively. Patient was taken back to the operating room and placed in the dorsal lithotomy position. General anesthesia was induced and patient was prepped and draped in normal sterile fashion. Uterine manipulator was placed inside the uterus and Juarez catheter placed in the bladder. The umbilicus was grasped with towel clamps and an intraumbilical incision was made after injecting with quarter percent Marcaine and a Veress needle entered into the abdomen confirmed to be intra-abdominal with a low opening pressure. Abdomen was insufflated with CO2 gas and the Veress needle removed and the 5 mm trocar was placed under direct visualization without complication. Right and left lower quadrants were transilluminated and injected with quarter percent Marcaine and 5 mm ports placed under direct visualization. Pelvis was well visualized see operative findings for additional information. omental to anterior abdominal wall adhesions were taken down without difficulty. Bilateral fallopian tubes were identified and transected with the LigaSure device across the mesosalpinx to the level of the utero-ovarian ligament which was also transected with the LigaSure device. The broad ligament was opened up by transecting the round ligament bilaterally and skeletonizing the uterine vessels bilaterally and creating a bladder flap using the LigaSure device. The uterine arteries were transected bilaterally with good visualization of the bladder and the ureters were seen to be inferior lateral to the operative area. Attention was then paid to the vaginal portion of the procedure and the cervix was grasped with Philip clamps and circumferentially injected with dilute vasopressin. A circumferential incision was made and the vaginal mucosa was mobilized off posteriorly and the cul-de-sac entered into sharply and a longneck speculum placed. The anterior cul-de-sac was then identified and entered into sharply. The uterosacral ligaments were clamped cut and suture ligated with 0 Monocryl bilaterally followed by the cardinal ligaments which were clamped cut and suture ligated bilaterally with 0 Monocryl. The uterus serially descended and was removed without difficulty with minimal morcellation. Pelvic sidewall pedicles were checked and noted to have excellent hemostasis. The vaginal mucosa was reapproximated incorporating the posterior peritoneum. This was reapproximated using 0 Vicryl [id number] sutures. Excellent hemostasis was noted. The cystoscopy was then performed and bilateral ureteral strong spray was noted and the bladder was noted to have no abnormality or lesions seen. Juarez catheter was replaced and then attention paid to the abdominal portion of the procedure again. The pelvis and cul-de-sac was well visualized and no significant active bleeding noted but some raw areas were seen on the peritoneum and therefore Tian was applied. Pressure was taken down and the areas visualized and noted of excellent hemostasis. All ports were removed under direct visualization without complication and the abdomen was desufflated of air. The instruments removed from the abdomen and the vagina vaginal sweep was negative. Port sites on the abdomen were closed with 4-0 Monocryl interrupted sutures and Steri's and windows were applied. She was awoken and taken recovery in stable condition. Grafts/Implants Used: none - Complications none - Admit VTE Documentation VTE Present on Admission: No VTE Mechan Device Prophylaxis: SCD's Multi Select Codes - Urinary/Genital Urinary/Genital CPT Codes: 71456 Cystoscopy, 42218 LAVH+BS/O <250gr Uterus
--- NOTE | 2019-06-04 06:05 | PCM.DC.VHY ---
Discharge Diet: No Restrictions Discharge Activity: Return to Normal Activity, May Not Drive, May Shower May resume sexual activity in: 6-8 weeks Call your doctor if your incision/area has: Continuous Slow Oozing, Sudden Increased Bleeding, Increased Pain/ Swelling, Increased Redness, Foul Smelling Discharge Call your doctor if you observe: Fever of 101 or Higher, Inability to urinate, Inability to have a bowel movement, Using more than one pad per hour Allergies/Adverse Reactions: Allergies Penicillins [PCN] Allergy (Verified 06/04/19 06:01) Rash Sulfa (Sulfonamide Antibiotics) Allergy (Verified 06/04/19 06:01) Rash Medications to take at Discharge L.acidoph,Paracasei, B.lactis [Probiotic] 1 ea PO DAILY 05/28/19 Vitamin E Mixed [Vitamin E] 400 unit PO DAILY 05/28/19 Naproxen [Naprosyn] 250 - 500 mg PO Q8H PRN PRN #30 tab 06/04/19 Oxycodone HCl/Acetaminophen [Percocet 5-325] 1 - 2 tab PO Q6H PRN PRN 7 Days #15 tab 06/04/19 The following prescriptions were given: Naproxen [Naprosyn] 250 - 500 mg PO Q8H PRN PRN #30 tab PRN Reason: MILD PAIN Transmission Status: Received by [id number] Oxycodone HCl/Acetaminophen [Percocet 5-325] 1 - 2 tab PO Q6H PRN PRN 7 Days #15 tab PRN Reason: Pain Transmission Status: Received by [id number] Primary Care Physician: Joseph Duque MD [Primary Care Provider] - Test Results: Test results from this visit will be discussed in further detail at your follow-up appointment, if applicable. Please Follow Up With: Jeimy Reyes MD - [phone]
[2019-06-04 06:08] LABS: Internal QC Validated? YES +Cl - CLEAR BKGD; Pregnancy, Urine Negative Negative
[2019-06-04] MEDS: Phenazopyridine 95 MG Tablet 190 MG PO (06:17)
[2019-06-04] MEDS: Acetaminophen 500 MG Tablet 1000 MG PO ×3 (06:17→18:28)
[2019-06-04] MEDS: Gabapentin 600 MG Tablet PO (06:17)
[2019-06-04] MEDS: Scopolamine 1mg/72hr Patch 1 PATCH TRANSDERM. (06:18)
[2019-06-04] MEDS: Celecoxib 200 MG Capsule 400 MG PO (06:18)
[2019-06-04] MEDS: Enoxaparin 40 MG/0.4 ML Syringe SC (06:19)
[2019-06-04] MEDS: Lactated Ringers 1,000 ML 40 ML IV (06:33)
[2019-06-04] MEDS: Magnesium Sulfate 4gm/100mL 4 GM/100 ML IV.SOLN. IV (06:35)
[2019-06-04] MEDS: dexAMETHasone 10 MG/ML Vial 8 MG IV (06:35)
[2019-06-04 06:51] LABS: Bedside Glucose 104 mg/dL (70-110)
[2019-06-04] MEDS: Lactated Ringers 1,000 ML 70 ML IV ×2 (07:00→13:11)
--- NOTE | 2019-06-04 07:30 | HYST_PTH ---
PATIENT: RIGO LA LOC: [facility] [place] U#:[id number] AGE/SX: 49/F ROOM: RE06/04/[address]: Dr. Jeimy Reyes MD : 1970 BED: DIS: 06/05/2019 SPEC #: [id number] RECD: 06/04/19 10:07 STATUS: GERA CRISTIAN #: [id number] JESSICA: 06/04/19 07:[address]: Jeimy Reyes DEPT: SURGICAL PATHOLOGY RECD BY: Johny Monroe ENTERED: 06/04/19 11:02 SP TYPE: HYSTERECT OTHR DR: MD Joseph Glasgow Tissues: Uterus, NOS Procedures: Surgery Specimen Level V HEADER OPERATION: ERAS, Laparoscopic assisted vaginal hysterectomy PRE-OP DIAGNOSIS: Abnormal uterine bleeding N93.9 TISSUE SUBMITTED: Uterus, bilateral fallopian tubes MICROSCOPIC DIAGNOSIS Uterus, hysterectomy: Cervix - Nabothian cyst, mild chronic inflammation and squamous metaplasia. Endometrium - secretory endometrium. Myometrium - adenomyosis. Right fallopian tube - no pathologic change. Left fallopian tube - no pathologic change. AM:jeanine 06/05/19 MICROSCOPIC DESCRIPTION Slides are reviewed. GROSS DESCRIPTION Received in fixative is one container labeled with the patient's name and designated uterus. The specimen consists of a uterus with attached right and left fallopian tubes and attached cervix. The uterus with cervix measures 9 x 6 x 5 cm and weighs 107 gm. The ectocervix is unremarkable. The cervical os is oval in contour. The endocervical canal measures 3 cm in length and is grossly unremarkable. The triangular endometrial cavity measures 4 x 2.5 cm. The reddish-alfaro endometrium measures up to 0.2 cm in thickness. The myometrium measures 2.5 cm in average thickness and is free of mass lesions. The right and left fallopian tubes are similar in appearance with average lengths of 5 cm and average diameters of 0.5 cm. The fimbrial ends have normal villous appearance. Embroidery Finisher sections are submitted in 8 cassettes as follows: 1 - anterior cervix, 2 - posterior cervix, 3 & 4 - anterior uterine wall, 5 & 6 - posterior uterine wall, 7 - rigtht fallopian tube, 8 - left fallopian tube./AM:jeanine 06/04/19 TC: 5 CPT: 33232
[2019-06-04] MEDS: Bupivacaine 0.25% 30 ML Vial (07:55)
[2019-06-04] MEDS: Vasopressin 20 UNITS/ML Vial (08:18)
[2019-06-04] MEDS: Lubricating Jelly 60 GM Tube 30 GM TOPICAL (08:28)
[2019-06-04] MEDS: Ketorolac 30 MG/ML Syringe IV ×2 (13:06→18:29)
[2019-06-04] MEDS: Docusate Sodium 100 MG Capsule PO (21:18)
[2019-06-05] MEDS: Acetaminophen 500 MG Tablet 1000 MG PO ×2 (00:06→06:35)
[2019-06-05] MEDS: Ketorolac 30 MG/ML Syringe IV ×2 (00:07→05:42)
[2019-06-05] MEDS: Lactated Ringers 1,000 ML 70 ML IV (01:51)
[2019-06-05 02:10] VITALS: BP 142/69; PULSE 71; RESP 18; TEMP 36.9; O2SAT 99
[2019-06-05 06:16] LABS: Hematocrit 37.5 % (37-47); Hemoglobin 12.7 g/dL (12.0-15.0); Mean Corp Hgb Conc 33.9 g/dL (32-36); Mean Corpuscular Hgb 29.5 pg (27.0-32.0); Mean Corpuscular Volume 87.2 fL (81-99); Mean Platelet Vol. 10.3 fl (6.2-12.0); Platelet Count 260 K/mm3 (150-450); RBC Distribution Width CV 13.1 % (11.6-14.6); RBC Distribution Width SD 41.2 fl (35.1-43.9); White Blood Count 12.9 K/mm3 (4.4-11.0)
[2019-06-05 06:52] VITALS: O2SAT 98
--- NOTE | 2019-06-05 08:22 | PN.OBGYN_ITS ---
Subjective: patient recovering well, denies CP, SOB, N, or V. patient is ambulating, voiding ,tolerating adequate po, and pain is controlled with oral medications. - Physical Exam Vitals/I&O's: Vital Signs Temp Pulse Resp BP Pulse Ox 98.4 F 71 18 142/69 H 98 06/05/19 02:10 06/05/19 02:10 06/05/19 02:10 06/05/19 02:10 06/05/19 06:52 Oxygen Flow Rate (L/min) 6 Oxygen Delivery Method Room Air Weight: 210 lb 12.191 oz Body Mass Index (BMI) 33.0 Intake and Output for Last 24 Hours 06/03/19 06/04/19 06/05/19 23:59 23:59 23:59 Intake Total 2597.79 / 2597.79 886.67 / 886.67 Output Total 830 / 2230 2900 / 2900 Balance 1767.79 / 367.79 - / -2012. General: Alert, Oriented x3 Laboratory Results 06/05/19 05:40: WBC 12.9 H, RBC 4.30, Hgb 12.7, Hct 37.5, MCV 87.2, MCH 29.5, MCHC 33.9, RDW Std Deviation 41.2, RDW Coeff of Mikaela 13.1, Plt Count 260, MPV 10.3 Current Medications Acetaminophen (Tylenol) 1,000 mg PO Q6 [facility] Last Admin: 06/05/19 06:35 Dose: 1,000 mg Documented by: Docusate Sodium (Colace) 100 mg PO BID [facility] Last Admin: 06/04/19 21:18 Dose: 100 mg Documented by: Enoxaparin Sodium (Lovenox) 40 mg SC DAILY [facility] Lactated Ringer's () 1,000 mls @ 70 mls/hr IV .[id number] [facility] Stop: 06/05/19 11:33 Last Admin: 06/05/19 01:51 Dose: 70 mls/hr Documented by: Ketorolac Tromethamine (Toradol) 30 mg IV Q6 [facility] Stop: 06/05/19 18:01 Last Admin: 06/05/19 05:42 Dose: 30 mg Documented by: Magnesium Oxide (Mag-Ox 400) 400 mg PO DAILY PRN PRN PRN Reason: Constipation Nutritional Formula (Lactose Free) (Ensure Enlive) 120 ml PO TIDCM TOMMY Ondansetron HCl (Zofran Odt) 4 mg PO Q6H PRN PRN PRN Reason: NAUSEA Oxycodone HCl (Oxyir) 5 - 10 mg PO Q4H PRN PRN PRN Reason: Pain Score 4-10/10 Sodium Chloride () 10 - 40 ml IV UD PRN PRN Reason: SALINE FLUSH Medical Necessity - Tobacco Use Smoking Status: Never smoker Tobacco Use: Non-smoker Assessment/Plan All Active Problems (Last Reviewed 05/15/19 @ 09:00 by Opal Ramirez) Abnormal uterine bleeding (Acute) patient is s/p [facility] POD 1 1. routine ERAS protocol postop care- increase ambulation, encourage oral intake and oral control of pain. lovenox and scds for dvt prophylaxis, patient stable for discharge to home.
[2019-06-05 08:36] VITALS: BP 135/79; PULSE 68; RESP 18; TEMP 36.8; O2SAT 96
[2019-06-05] MEDS: Docusate Sodium 100 MG Capsule PO (08:41)
[2019-06-05] MEDS: Enoxaparin 40 MG/0.4 ML Syringe SC (08:41)
== END 2019-06-05 11:44 | disposition home or self-care (01) ==
LOC: SDC 05:28 → AC 05:29 → MS2 08:53
PROVIDERS: Anesthesiology; PCP Family Medicine; Referring Provider Obstetrics & Gynecology; Visit Provider Obstetrics & Gynecology
PROC: 0UT9FZZ Resection of Uterus, Via Natural or Artificial Opening With Percutaneous Endoscopic Assistance (ICD-10-PCS; CPT 52000; principal; 2019-06-04 07:05)
DX: N93.9 Abnormal uterine and vaginal bleeding, unspecified (principal); N88.8 Other specified noninflammatory disorders of cervix uteri; N80.0 Endometriosis of uterus; K66.0 Peritoneal adhesions (postprocedural) (postinfection); Z79.1 Long term (current) use of non-steroidal anti-inflammatories (NSAID); Z79.899 Other long term (current) drug therapy; Z88.0 Allergy status to penicillin; Z88.2 Allergy status to sulfonamides
CPT/HCPCS: 52000; 58552; 36415; 81025; 82962; 85027; 88307; 99251; J7120; G0463; J2405

== ENCOUNTER → 2019-06-17 13:03 | Outpatient (CLI) | payer BC, SELFPAY ==
[2019-05-15 09:09] VITALS: BMI 30.6
[2019-06-04 11:04] VITALS: BMI 33.0
--- NOTE | 2019-06-17 13:03 | BI_ITS ---
MAMMOGRAPHY - BILATERAL SCREENING 3-D TOMOSYNTHESIS REASON FOR EXAM: Female, 49 years old. FM HX MOTHER 68, MAT GRT GMA 50''S, PT HAS C/O PAIN THAT RADIATES INTO LT AXILLA AREA SINCE JUN 2017 WITH US(NEG) AND NO RELIEF FROM MEDS-PAST BRUISING FROM MAMM PERTINENT HISTORY: Positive family history as above. TECHNIQUE: 2-D mammograms and 3-D Tomosynthesis of the breast (s) were performed. CAD was performed. COMPARISON: 05/28/2018, 07/13/2017, 07/06/2016 FINDINGS: The breast composition is composed of scattered fibroglandular density. Scattered benign calcifications are seen. No dense spiculated masses or suspicious microcalcifications are identified. No architectural distortion is identified. There is no skin thickening or retraction. There has been no significant change since the prior study. BI/SCREEN MAMM (CAD) W/MYRTLE BILAT IMPRESSION: No mammographic signs of malignancy. Routine yearly mammograms recommended. ASSESSMENT CATEGORY: BIRADS Category 1: Negative. A letter regarding these results will be sent to the patient by the facility within 30 days. FOLLOW UP RECOMMENDATION: Yearly follow up mammogram recommended. (A) Approximately 10% of breast cancers are not detected by mammography. A normal mammogram should not delay biopsy of a clinically suspicious abnormality. Electronically Signed: Stef Benavides MD at 13:02 EST Tel [phone], Service support ,
== END ==
PROVIDERS: PCP Family Medicine; Referring Provider Obstetrics & Gynecology; Visit Provider Obstetrics & Gynecology
DX: Z12.31 Encounter for screening mammogram for malignant neoplasm of breast (principal)
CPT/HCPCS: 77063; 77067

== ENCOUNTER → 2020-07-09 10:16 | Outpatient (CLI) | payer BC, SELFPAY ==
[2019-07-17 10:01] VITALS: BMI 33.0
--- NOTE | 2020-07-09 10:23 | BI_ITS ---
MAMMOGRAPHY - BILATERAL SCREENING REASON FOR EXAM: Female, 50 years old. Routine annual screening examination. PERTINENT HISTORY: Mother with breast cancer. Grandmother with breast cancer. TECHNIQUE: Digital bilateral breast myrtle (3D mammographic acquisition) in the CC and MLO projections. 2-D mediolateral oblique (MLO) and craniocaudad (CC) views of both breasts were obtained. CAD: Full Field Digital Mammography with Computer Added Detection was performed. COMPARISON: Comparison is made with prior study dated 03/18/2019 and 05/28/2018. FINDINGS: Breast Composition: There are scattered areas of fibroglandular density. There are no dominant masses or suspicious calcifications. No other significant abnormalities are identified. There has been no significant change since the prior study. BI/SCRN MAMM (CAD)W/MYRTLE BILAT IMPRESSION: Stable bilateral screening mammogram. Yearly follow-up mammogram recommended. (A) ASSESSMENT CATEGORY: BIRADS Category 1: Negative. A letter regarding these results will be sent to the patient by the facility within 30 days. Approximately 10% of breast cancers are not detected by mammography. A normal mammogram should not delay biopsy of a clinically suspicious abnormality. [id number] Electronically Signed: Rigo Santos, at 12:20 EST , Service support ,
== END ==
PROVIDERS: PCP Family Medicine; Referring Provider Obstetrics & Gynecology; Visit Provider Obstetrics & Gynecology
DX: Z12.31 Encounter for screening mammogram for malignant neoplasm of breast (principal); Z80.3 Family history of malignant neoplasm of breast
CPT/HCPCS: 77063; 77067

== ENCOUNTER 2021-07-12 10:07 | Outpatient (CLI) | payer BC, SELFPAY ==
[2020-07-09 10:54] VITALS: BMI 35.0
--- NOTE | 2021-07-12 10:12 | BI_ITS ---
MAMMOGRAPHY - BILATERAL SCREENING REASON FOR EXAM: Female, 51 years old. Routine annual screening examination. PERTINENT HISTORY: Mother with breast cancer. TECHNIQUE: Digital bilateral breast myrtle (3D mammographic acquisition) in the CC and MLO projections. 2-D mediolateral oblique (MLO) and craniocaudad (CC) views of both breasts were obtained. CAD: Full Field Digital Mammography with Computer Added Detection was performed. COMPARISON: Comparison is made with prior study dated 07/09/2020 and 06/17/2019. FINDINGS: Breast Composition: There are scattered areas of fibroglandular density. There are no dominant masses or suspicious calcifications. Stable small benign appearing bilateral axillary lymph nodes. No other significant abnormalities are identified. There has been no significant change since the prior study. BI/SCRN MAMM (CAD)W/MYRTLE BILAT IMPRESSION: Stable bilateral screening mammogram. Yearly follow-up mammogram recommended. (A) ASSESSMENT CATEGORY: BIRADS Category 2: Benign. A letter regarding these results will be sent to the patient by the facility within 30 days. Approximately 10% of breast cancers are not detected by mammography. A normal mammogram should not delay biopsy of a clinically suspicious abnormality. [id number] Electronically Signed: Rigo Santos MD at 8:19 EST , Service support ,
== END 2021-07-12 23:59 | disposition short-term general hospital (02) ==
LOC: OPBI 10:08
PROVIDERS: PCP Family Medicine; Referring Provider Obstetrics & Gynecology; Visit Provider Obstetrics & Gynecology
DX: Z12.31 Encounter for screening mammogram for malignant neoplasm of breast (principal)
CPT/HCPCS: 77063; 77067

== ENCOUNTER → 2022-04-09 | Outpatient (CLI) | payer BC, SELFPAY ==
--- NOTE | 2022-04-09 09:15 | MRI_ITS ---
STUDY: MRI LEFT KNEE REASON FOR EXAM: Female, 52 years old. Lateral LEFT knee pain and decreased ROM since December TECHNIQUE: Standardized fat and water weighted pulse sequences were obtained in all 3 orthogonal planes. COMPARISON: None. FINDINGS: Normal medial meniscus. There is diffuse, less than 50% thickness articular cartilage loss of the medial femorotibial compartment. Normal medial femoral condyle and tibial plateau. Normal medial collateral ligamentous complex (MCL). Normal distal semimembranosus, gracilis and semitendinosus tendons. Normal lateral meniscus. Mild ganglion cystic formation is present at the anterior horn of the lateral meniscal insertion site/transverse meniscal ligament site. There is signal heterogeneity within the articular cartilage of the lateral femorotibial compartment without significant thinning and with an intact articular cartilage surface. Normal lateral femoral condyle and tibial plateau. Normal proximal tibiofibular articulation. Normal lateral collateral (fibular) ligament. Normal popliteus tendon. Normal biceps femoris tendon. Normal anterior cruciate ligament (ACL). Normal posterior cruciate ligament (PCL). There is a lateral patellar tilt. There is diffuse, moderate to full thickness articular cartilage loss of the patellar facets. The trochlear groove cartilage is mostly preserved. Normal medial and lateral patellar retinaculum. Normal quadriceps tendon. Normal patellar tendon. Normal Hoffa''s fat pad. Small joint effusion noted. The soft tissues are unremarkable. The otherwise visualized osseous structures are unremarkable. MRI/Lower Ext Joint Only (Routine) IMPRESSION: 1. Moderate to full-thickness loss of cartilage across patellar facets 2. Mild ganglion cystic formation is present at the anterior horn of the lateral meniscal insertion site/transverse meniscal ligament site. Electronically Signed: Orlando Ramirez MD at 10:33 EDT ,
== END | disposition home or self-care (01) ==
PROVIDERS: PCP Family Medicine; Referring Provider Orthopaedic Surgery; Visit Provider Orthopaedic Surgery
DX: M25.562 Pain in left knee (principal)
CPT/HCPCS: 73721

== ENCOUNTER → 2022-07-18 | Outpatient (CLI) | payer BC, SELFPAY ==
--- NOTE | 2022-07-18 09:54 | BI_ITS ---
MAMMOGRAPHY - BILATERAL SCREENING REASON FOR EXAM: Female, 52 years old. Routine annual screening examination. PERTINENT HISTORY: Mother with breast cancer. Grandmother with breast cancer. TECHNIQUE: Digital bilateral breast myrtle (3D mammographic acquisition) in the CC and MLO projections. 2-D mediolateral oblique (MLO) and craniocaudad (CC) views of both breasts were obtained. CAD: Full Field Digital Mammography with Computer Added Detection was performed. COMPARISON: Comparison is made with prior examination and generally 2021 and 07/09/2020. FINDINGS: Breast Composition: There are scattered areas of fibroglandular density. There are no dominant masses or suspicious calcifications. Stable small benign-appearing bilateral axillary lymph nodes. No other significant abnormalities are identified. There has been no significant change since the prior study. BI/SCRN MAMM (CAD)W/MYRTLE BILAT IMPRESSION: Stable bilateral screening mammogram. Yearly follow-up mammogram recommended. (A) ASSESSMENT CATEGORY: BIRADS Category 2: Benign. A letter regarding these results will be sent to the patient by the facility within 30 days. Approximately 10% of breast cancers are not detected by mammography. A normal mammogram should not delay biopsy of a clinically suspicious abnormality. [id number] Electronically Signed: Rigo Santos MD at 10:51 EST ,
== END | disposition home or self-care (01) ==
LOC: OPBI 09:52
PROVIDERS: PCP Family Medicine; Visit Provider Obstetrics & Gynecology
DX: Z12.31 Encounter for screening mammogram for malignant neoplasm of breast (principal); Z80.3 Family history of malignant neoplasm of breast
CPT/HCPCS: 77063; 77067

== ENCOUNTER → 2023-07-24 | Outpatient (CLI) | payer OTHER, SELFPAY ==
--- NOTE | 2023-07-24 10:01 | BI_ITS ---
MAMMOGRAPHY - BILATERAL SCREENING REASON FOR EXAM: Female, 53 years old. Routine annual screening examination. PERTINENT HISTORY: Mother with breast cancer. Grandmother with breast cancer. TECHNIQUE: Digital bilateral breast myrtle (3D mammographic acquisition) in the CC and MLO projections. 2-D mediolateral oblique (MLO) and craniocaudad (CC) views of both breasts were obtained. CAD: Full Field Digital Mammography with Computer Added Detection was performed. COMPARISON: Comparison is made with prior study dated July 18, 2022 and July 12, 2021. FINDINGS: Breast Composition: There are scattered areas of fibroglandular density. There are no dominant masses or suspicious calcifications. Stable benign-appearing left axillary lymph nodes. No other significant abnormalities are identified. There has been no significant change since the prior study. BI/SCRN MAMM (CAD)W/MYRTLE BILAT IMPRESSION: Stable bilateral screening mammogram. Yearly follow-up mammogram recommended. (A) ASSESSMENT CATEGORY: BIRADS Category 2: Benign. A letter regarding these results will be sent to the patient by the facility within 30 days. Approximately 10% of breast cancers are not detected by mammography. A normal mammogram should not delay biopsy of a clinically suspicious abnormality. [id number] Electronically Signed: Rigo Santos MD at 11:16 EST ,
--- OUTSIDE RECORDS SUMMARY | 2023-07-24 10:58 | XMS RPT_ITS | CCD ---
Author Name Unknown Address [address] [place] [address] Organization [facility] Care Team Providers Care [place] [facility] Team Member Name Role Phone BISMARK MOLINA Unavailable Unavailable NO, PHYSICIAN Unavailable Unavailable ShrCarmel mendeze M Unavailable Unavailable Shriner Juanis M Unavailable Unavailable No Doctor Assigned, Nodr Unavailable Unavail able Shrandrea Juanis M Unavailable Unavailable Shriner, Juanis M Unavailable Unavailable Duque, Christopher Unavailable Unavailable Bundy, Remberto Unavailable Unavailable Bundy, Remberto Unavailable Unavailable No Doctor Assigned, Nodr Unavailable Unavail able Duque, Christopher Unavailable Unavailable No Doctor Assigned, Nodr Unavailable Unavail able Duque, Christopher Unavailable Unavailable Duque, Christopher Unavailable Unavailable No Doctor Assigned, Nodr Unavailable Unavail able No Doctor Assigned, Nodr Unavailable Unavail able Bon, J Carlos W Unavailable Unavailable Bon, J Carlos W Unavailable Unavailable Duque, Christopher Unavailable Unavailable No Doctor Assigned, Nodr Unavailable Unavail able Duque, Christopher Unavailable Unavailable Duque, Christopher Unavailable Unavailable Duque, Christopher Unavailable Unavailable No Doctor Assigned, Nodr Unavailable Unavail able Duque, Christopher Unavailable Unavailable No Doctor Assigned, Nodr Unavailable Unavail able Thomae, Andrade R Unavailable Unavailable No Doctor Assigned, Nodr Unavailable Unavail able Corkwell, Cheryle Unavailable Unavailable Corkwell, Cheryle Unavailable Unavailable No Doctor Assigned, Nodr Unavailable Unavail able Corkwell, Cheryle Unavailable Unavailable Corkwell, Cheryle Unavailable Unavailable No Doctor Assigned, Nodr Unavailable Unavail able Corkwell, Cheryle Unavailable Unavailable Corkwell, Cheryle Unavailable Unavailable No Doctor Assigned, Nodr Unavailable Unavail able Duque, Christopher Unavailable Unavailable No Doctor Assigned, Nodr Unavailable Unavail able Thomae, Andrade R Unavailable Unavailable Duque, Christopher Unavailable Unavailable No Doctor Assigned, Nodr Unavailable Unavail able Thomae, Andrade R Unavailable Unavailable Thomae, Andrade R Unavailable Unavailable Thomae, Andarde R Unavailable Unavailable Duque, Christopher Unavailable Unavailable Duque, Christopher Unavailable Unavailable Duque, Christopher Unavailable Unavailable J Carlos Lora Brian Unavailable Unavailable Duque, Christopher Unavailable Unavailable Duque, Christopher Unavailable Unavailable Duque, Christopher Unavailable Unavailable Zumbar, Yobani Unavailable Unavailable Zumbar, Yobani Unavailable Unavailable Duque, Christopher Unavailable Unavailable Zumbar, Yobani Unavailable Unavailable Zumbar, Yobani Unavailable Unavailable Duque, Christopher Unavailable Unavailable Zumbar, Yobani Unavailable Unavailable Zumbar, Yobani Unavailable Unavailable Duque, Christopher Unavailable Unavailable Zumbar, Yobani Unavailable Unavailable Zumbar, Yobani Unavailable Unavailable Duque, Christopher Unavailable Unavailable None, No PCP Unavailable Unavailable Unavailable Unavailable Abdirashid Jeronimo Unavailable Unavailable Unavailable Abdirashid Jeronimo Unavailable Moomaw, Jean Pierre I Unavailable Unavailable Dr. ABDIRASHID JERONIMO Referring Unavailalaina JERONIMO, Dr. ABDIRASHID Faustin Attending Unavailalaina JERONIMO, Dr. ABDIRASHID Faustin Primary Care Unavailalaina JERONIMO, Dr. ABDIRASHID Faustin Primary Care Unavailalaina JERONIMO, Dr. ABDIRASHID Faustin Referring Unavailalaina JERONIMO, Dr. ABDIRASHID Faustin Attending UnavailAbdirashid Barger DO Primary Care Provider Unava ilNAHEED Longoria Attending UnavailABDIRASHID Barger Primary Care Unavailable Allergies Allergy Classification Reported Allergen(s) Allergy Type Date of Onset Reaction(s) Facility (11 sources) Penicillins; Translations: [penicillins] Propensity to adverse reactions to drug (disorder) Unknown [facility] Repository (9 sources) Sulfonamides (Antibiotic); Translations: [sulfa drugs] Propensity to adverse reactions to drug (disorder) AOF, Unknown [facility] Repository (2 sources) Sulfonamides (Antibiotic); Translations: [SULFA (SULFONAMIDE ANTIBIOTICS)] Drug Allergy Rash [facility] Medications Completed/Discontinued Medications Medication Drug Class(es) Dates Sig (Normalized) Sig (Original) ascorbic acid 1000 mg oral tablet (6 sources) Vitamin C take 1 tablet by once daily Ascorbic Acid 1,000 mg tablet Take 1,000 mg by mouth once daily. 0 Active Problems Problem Classification Problem Date Documented Da te Episodic/Chronic Abdominal pain (3 sources) Epigastric pain; Translations: [Abdominal pain, epigastric] Episodic Blindness and vision defects (4 sources) Bilateral hyperopia of eyes; Translations: [Hypermetropia, bilateral] Onset: 07-18-2018 Episodic Diabetes mellitus without complication (1 source) Prediabetes; Translations: [Other abnormal glucose] Episodic Inflammation; infection of eye (except that caused by tuberculosis or sexually transmitteddisease) (1 source) Contact dermatitis of eyelid; Translations: [Allergic dermatitis of left eye, unspecified eyelid] Episodic Other circulatory disease (2 sources) Elevated blood pressure; Translations: [Elevated blood pressure reading without diagnosis of hypertension] Episodic Other connective tissue disease (4 sources) Plantar fasciitis; Translations: [Plantar fascial fibromatosis] Episodic Other gastrointestinal disorders (3 sources) Abdominal bloating; Translations: [Flatulence, eructation, and gas pain] Episodic Other gastrointestinal disorders (6 sources) Small bowel bacterial overgrowth syndrome; Translations: [Other specified disorders of intestine] Episodic Other non-traumatic joint disorders (1 source) Pain in joint, lower leg 01-24-2022 Episodic Other nutritional; endocrine; and metabolic disorders (5 sources) Body mass index 30+ - obesity; Translations: [Body Mass Index 36.0-36.9, adult] Chronic Other nutritional; endocrine; and metabolic disorders (5 sources) Severe obesity; Translations: [Morbid obesity] Chronic Unclassified (2 sources) LEFT LEG PAIN BE HIND KNEE 01-24-2022 Results Test Name Value Interpretation Reference Range Facil ity Vital Signs Date Time Vital Sign Value Performing Clinician Facility 07-18-2022 13:33-0500 Body height 170.18 cm [employer] [facility]: 07-18-2022 13:33-0500 Body mass index (BMI) [Ratio] 36.34 kg/m2 [employer] Phone: [facility] Work Phone: 07-18-2022 13:33-0500 Body surface area Derived from formula 2.15 m2 Abdirashid Faustin [place] Work Phone: [facility] [employer] [facility] Work Phone: 07-18-2022 13:33-0500 Body weight 105.24 kg Abdirashid Faustin [place] Work Phone: [facility] Work Phone: 07-18-2022 13:33-0500 Diastolic blood pressure 86 mm[Hg] Abdirashid Faustin [place] Work Phone: [facility] Work Phone: 07-18-2022 13:33-0500 Heart rate 74 /min Abdirashid Faustin [place] Work Phone: [facility] Work Phone: 07-18-2022 13:33-0500 SaO2% (BldA) [Mass fraction] 99 % Abdirashid Jeronimo Work Phone: [facility] Work Phone: 07-18-2022 13:33-0500 Systolic blood pressure 132 mm[Hg] Abdirashid Faustin [place] Work Phone: [facility] [facility] Work Phone: 01-24-2022 20:56-0400 Diastolic blood pressure 113 mm[Hg] Abdirashid [place] Other Phone: [facility] 01-24-2022 20:56-0400 Heart rate 75 /min Abdirashid [place] Other Phone: [facility] 01-24-2022 20:56-0400 Respiratory rate 18 /min Abdirashid [place] Other Phone: [facility] 01-24-2022 20:56-0400 SaO2% (BldA) [Mass fraction] 96 % Abdirashid [place] Other Phone: [facility] 01-24-2022 20:56-0400 Systolic blood pressure 182 mm[Hg] Abdirashid Jeronimo Other Phone: [facility] 01-24-2022 20:19-0400 Body height 170.1 cm Abdirashid Jeronimo Other Phone: [facility] 01-24-2022 20:19-0400 Body temperature 97.16 [degF] Abdirashid Jeronimo Other Phone: [facility] 01-24-2022 20:19-0400 Body weight 102 kg Abdirashid Jeronimo Other Phone: [facility] 07-21-2021 09:34-0500 Body height 170.18 cm Abdirashid Faustin [place] Work Phone: [facility] Work Phone: 07-21-2021 09:34-0500 Body mass index (BMI) [Ratio] 36.66 kg/m2 Abdirashid S [place] Work Phone: [employer] Work Phone: 07-21-2021 09:34-0500 Body surface area Derived from formula 2.16 m2 Abdirashid S [place] Work Phone: [employer] Work Phone: 07-21-2021 09:34-0500 Body temperature 97 [degF] Abdirashid S [place] Work Phone: [facility] Work Phone: 07-21-2021 09:34-0500 Body weight 106.17 kg Abdirashid S [place] Work Phone: [facility] [employer] Work Phone: 07-21-2021 09:34-0500 Diastolic blood pressure 78 mm[Hg] Abdirashid S [place] Work Phone: [employer] Work Phone: 07-21-2021 09:34-0500 Heart rate 70 /min Abdirashid Jeronimo Work Phone: [facility] Work Phone: 07-21-2021 09:34-0500 SaO2% (BldA) [Mass fraction] 98 % Abdirashid Jeronimo Work Phone: [facility] Work Phone: 07-21-2021 09:34-0500 Systolic blood pressure 132 mm[Hg] Abdirashid Faustin [place] Work Phone: [facility] Work Phone: 07-12-2021 14:14-0500 Body height 170.18 cm Abdirashid Jeronimo Work Phone: [facility] Work Phone: 07-12-2021 14:14-0500 Body mass index (BMI) [Ratio] 36.67 kg/m2 Abdirashid Jeronimo Work Phone: [facility] Work Phone: 07-12-2021 14:14-0500 Body surface area Derived from formula 2.16 m2 Abdirashid Jeronimo [employer] Phone: [facility] Work Phone: 07-12-2021 14:14-0500 Body temperature 97.1 [degF] Abdirashid Jeronimo Work Phone: [facility] Work Phone: 07-12-2021 14:14-0500 Body weight 106.2 kg Abdirashid Jeronimo Work Phone: [facility] Work Phone: 07-12-2021 14:14-0500 Diastolic blood pressure 90 mm[Hg] Abdirashid Jeronimo Work Phone: [facility] [employer] [facility] Work Phone: 07-12-2021 14:14-0500 Heart rate 70 /min Abdirashid Jeronimo Work Phone: [facility] [facility] Work Phone: 07-12-2021 14:14-0500 SaO2% (BldA) [Mass fraction] 98 % Abdirashid Jeronimo Work Phone: [facility] [place] [employer] [facility] Work Phone: 07-12-2021 14:14-0500 Systolic blood pressure 136 mm[Hg] Abdirashid Jeronimo Work Phone: [facility] [place] [employer] [facility] Work Phone: Encounters Encounter Date Encounter Type Care Provider Facility Start: 08-24-2022 End: 08-24-2022 ambulatory NAHEED JOVEL Facility:[facility] Start: 08-24-2022 End: 08-24-2022 Patient encounter procedure Naheed Jovel OD Work Phone: Optometry Procedures Date Procedure Procedure Detail Performing Clinician section No PCP None Hysterectomy No PCP None Tonsillectomy No PCP None Plan of Treatment Date Care Activity Detail Author Start: 07-24-2023 EPV, Provider: Abdirashid Jeronimo, Status: Pen, Time: 1:00 PM EPV, Provider: Abdirashid Jeronimo, Status: Pen, Time: 1:00 PM [facility] Work Phone: Start: 07-18-2022 EPV, Provider: Abdirashid Jeronimo, Status: Pen, Time: 1:40 PM EPV, Provider: Abdirashid Jeronimo, Status: Pen, Time: 1:40 PM [facility] Work Phone: Start: 07-18-2022 Patient encounter procedure [facility] Start: 06-26-2022 DEPRESSION ASSESSMENT DEPRESSION ASSESSMENT [facility] Start: 09-01-2022 Influenza vaccination INFLUENZA (#1) [facility] Start: 08-20-2021 COVID-19 VACCINE (4 - Booster for Pfizer series) COVID-19 VACCINE (4 - Booster for Pfizer series) [facility] Start: 07-21-2021 FUV, Provider: Abdirashid Jeronimo, Status: Pen, Time: 9:40 AM FUV, Provider: Abdirashid Jeronimo, Status: Pen, Time: 9:40 AM [facility] Work Phone: Start: 2020 SHINGRIX VACCINE (1 of 2) SHINGRIX VACCINE (1 of 2) [facility] Start: 2015 COLOGUARD (FIT-DNA) COLOGUARD (FIT-DNA) [facility] Start: 2015 Colonoscopy COLONOSCOPY [facility] Start: 2015 COLORECTAL CANCER SCREENING COLORECTAL CANCER SCREENING [facility] Start: [address] COLONOGRAPHY [facility] Start: 2015 DIABETES SCREEN DIABETES SCREEN [facility] Start: 2015 FECAL OCCULT BLOOD FECAL OCCULT BLOOD [facility] Start: 2015 LIPID SCREEN LIPID SCREEN [facility] Start: 2015 SIGMOIDOSCOPY SIGMOIDOSCOPY [facility] Start: 2010 Mammography MAMMOGRAM [facility] Start: 2000 HPV TESTING HPV TESTING [facility] Start: 1991 PAP TESTING PAP TESTING [facility] Start: 1989 Urine microalbumin profile DTAP,TDAP,TD (1 - Tdap) [facility] Start: 1988 HEPATITIS C SCREENING HEPATITIS C SCREENING [facility] Start: 1988 HIV SCREENING HIV SCREENING [facility] Start: 1970 HEPATITIS B (1 of 3 - 3-dose series) HEPATITIS B (1 of 3 - 3-dose series) [facility] Immunizations Immunization Date Immunization Notes Care Provider Francia [email or web address] 06-25-2021 Pfizer-BioNTech COVI D-19 Vacc 30 MCG/0.3ML Intramuscular Suspension Abdirashid Jeronimo Work Phone: [facility] Work Phone: 05-19-2021 tetanus toxoid, redu naomi diphtheria toxoid, and acellular pertussis vaccine, adsorbed Abdirashid Roxie [place] Work Phone: [facility] Work Phone: Payers Date Payer Category Payer Unknown [id number] 2020 Unknown [id number] 2017 Unknown 2016 Unknown [id number] 1970 Unknown [id number] 2.16.84 0.1.466037.3.579.2. 1970 Unknown [id number] 2.16.84 0.1.676926.3.579.2. 1970 Unknown [id number] 2.16.84 0.1.105566.3.579.2. 1970 Unknown [id number] 2.16.84 0.1.656762.3.579.2. 1970 Unknown [id number] 2.16.84 0.1.983035.3.579.2. 1970 Unknown [id number] 2.16.84 0.1.787613.3.579.2 1970 Unknown [id number] 2.16.84 0.1.933779.3.579.2. 1970 Unknown [id number] 2.16.84 0.1.424454.3.579.2. 1970 Unknown [id number] 2.16.84 0.1.839158.3.579.2. 1970 Unknown [id number] 2.16.84 0.1.129592.3.579.2. 1970 Unknown [id number] 2.16.84 0.1.330679.3.579.2 1970 Unknown [id number] 2.16.84 0.1.523051.3.579.2. 1970 Unknown [id number] 2.16.84 0.1.964624.3.579.2.717 1970 Unknown [id number] 2.16.84 0.1.093218.3.579.2.7 1970 Unknown [id number] 2.16.84 0.1.496919.3.579.2. 1970 Unknown [id number] 2.16.84 0.1.600765.3.579.2. 1970 Unknown [id number] 2.16.84 0.1.631315.3.579.2. 1970 Unknown [id number] 2.16.84 0.1.732931.3.579.2. 1970 Unknown [id number] 2.16.84 0.1.470067.3.579.2. 1970 Unknown [id number] 2.16.84 0.1.654907.3.579.2. 1970 Unknown [id number] 2.16.84 0.1.568363.3.579.2. 1970 Unknown [id number] 2.16.84 0.1.205927.3.579.2. 1970 Unknown [id number] 2.16. 840.1.746739.3.579.2.356 1970 Unknown [id number] 2.16. 840.1.846147.3.579.2.356 Social History Date Type Detail Facility Never a smoker Never a smoker [facility] Work Phone: Tobacco smoking consumption unknown [facility] Start: 07-18-2018 Tobacco smoking status NHIS Never smoked tobacco [facility] Start: 07-18-2018 Tobacco use and exposure Smokeless tobacco non-user [facility] Start: 08-24-2022 Alcohol intake Current non-dr layout designer of alcohol (finding) [facility] Start: 1970 Sex Assigned At Not on file [facility] Progress note 08-24-2022 Note Date & Type Note Facility 08-24-2022 Note HNO ID: [id number] Author: Naheed Jovel OD Service: ? Author Type: CONCRETE PAVING SUPERVISOR Type: Progress Notes Filed: 08/24/2022 5:19 PM Note Text: ASSESSMENT/PLAN: 1. Hyperopia, bilateral - ICD9: 367.0, ICD10: H52.03 (primary diagnosis) 2. Presbyopia - ICD9: 367.4, ICD10: H52.4 Continue to wear her glasses as desired Continue to wear her contact lenses on a daily basis and replaced with each use. 3. Contact dermatitis of eyelid, left - ICD9: 373.32, ICD10: H01.116 Suggested discontinuing her eye makeup and use hot compresses twice a day. Return in one month due to her schedule. Naheed Jovel OD I have confirmed and edited as necessary the relevant ophthalmic history, ROS, and the neuro exam findings as obtained by others. [facility] Instructions 08-24-2022 Patient Instructions Note Date & Type Note Facility 08-24-2022 Instructions Naheed Jovel, OD - 08/24/2022 5:18 PM EST ASSESSMENT/PLAN: 1. Hyperopia, bilateral - ICD9: 367.0, ICD10: H52.03 (primary diagnosis) 2. Presbyopia - ICD9: 367.4, ICD10: H52.4 Continue to wear her glasses as desired Continue to wear her contact lenses on a daily basis and replaced with each use. 3. Contact dermatitis of eyelid, left - ICD9: 373.32, ICD10: H01.116 Suggested discontinuing her eye makeup and use hot compresses twice a day. Return in one month due to her schedule. documented in this encounter [facility] History of Present illness Narrative 08-24-2022 Naheed Jovel, OD - 08/24/2022 5:12 PM EST Note Date & Type Note Facility 08-24-2022 History of Presen t illness Narrative ASSESSMENT/PLAN: 1. Hyperopia, bilateral - ICD9: 367.0, ICD10: H52.03 (primary diagnosis) 2. Presbyopia - ICD9: 367.4, ICD10: H52.4 Continue to wear her glasses as desired Continue to wear her contact lenses on a daily basis and replaced with each use. 3. Contact dermatitis of eyelid, left - ICD9: 373.32, ICD10: H01.116 Suggested discontinuing her eye makeup and use hot compresses twice a day. Return in one month due to her schedule. Naheed Jovel, OD I have confirmed and edited as necessary the relevant ophthalmic history, ROS, and the neuro exam findings as obtained by others. documented in this encounter [facility] Evaluation note Note Date & Type Note Facility documented in this encounter [facility] Summary Purpose Family History No Family History Records FoundUnknown Family Member Name Dates Details Family history of lung cance r: Father(V16.1, Z80.1) Status:Active Family history of hypertensi on: Mother(V17.49, Z82.49) Status:Active Unknown Family Member Name Dates Details Family history of lung cance r: Father(V16.1, Z80.1) Status:Active Family history of hypertensi on: Mother(V17.49, Z82.49) Status:Active Family history of malignant neoplasm of breast: Mother(V16.3, Z80.3) Status:Active Unknown Family Member Name Dates Details Family history of malignant neoplasm of breast: Mother(V16.3, Z80.3) Status:Active Family history of hypertensi on: Mother(V17.49, Z82.49) Status:Active Family history of lung cance r: Father(V16.1, Z80.1) Status:Active Unknown Family Member Name Dates Details Family history of lung cance r: Father(V16.1, Z80.1) Status:Active Family history of hypertensi on: Mother(V17.49, Z82.49) Status:Active Family history of malignant neoplasm of breast: Mother(V16.3, Z80.3) Status:Active Unknown Family Member Name Dates Details Family history of lung cance r: Father(V16.1, Z80.1) Status:Active Family history of hypertensi on: Mother(V17.49, Z82.49) Status:Active Family history of malignant neoplasm of breast: Mother(V16.3, Z80.3) Status:Active Unknown Family Member Name Dates Details Family history of lung cance r: Father(V16.1, Z80.1) Status:Active Family history of hypertensi on: Mother(V17.49, Z82.49) Status:Active Family history of malignant neoplasm of breast: Mother(V16.3, Z80.3) Status:Active Advance Directives No Advanced Directives Records FoundNo Advanced Directives Records FoundNo Advanced Directives Records FoundNo Advanced Directives Records FoundNo Advanced Directives Records FoundNo Advanced Directives Records Found Chief Complaint * Pt is here today to get EST with new PCP. This note was generated by using [employer] software. It may contain errors in wording, punctuate, or spelling. * She is here today to get established. When she arrived her blood pressure was a bit generous. She states that she was recently to her CHECKER CASHIER's office and her blood pressure was much better. She states she has been accused of having whitecoat syndrome. We talked about getting a reliable blood pressure monitor and doing some readings at home when she has an opportunity to sit and relax. I did remind her that she should bring her monitor with her so that we can make sure that her blood pressure iscontrolled most of the time. She also brought in some lab work orders from her dyer helper and we discussed adding a couple of blood tests to those orders as a combined effort for her checkup. We also conducted a review of systems and we went through her past medical history. She had a very sad circumstance of losing her 1 year ago on May 28 and she is coping well. She obviously still has sadness about the event but she has no signs of depression at this time. She also has a close a nd loving relationship with his parents. She also expresses extreme frustration about her weight. She states that over the course of the last year she has gained several pounds. We talked about looking into possibly joining weight watchers and I will give her handout that goes over some tips today for losing weight. She states she normally loves to walk as part of her weight loss regimen but she has been having some pain in the bottom of her feet that appears to be very consistent with plantar fasciitis. She states she does have some orthotics that she puts in her shoes and it helps somewhat but not sufficiently so. We talked about seeing a cross cut saw operator and she states she will consider it. Reagan discussed doing a screening hemoglobin A1c and will also check a basic metabolic profile. She is up-to-date with cancer screening. She just had her mammogram this morning and she had a colonoscopy just a couple years ago with Dr. Briseno. She also received her Tdap we estimate in late April.She also has received the COVID-19 vaccination series. I am recommending this season's flu vaccine.We will see her back in follow-up. * Pt is here today for a 2 week follow up, Review labs. This note was generated by using [employer] software. It may contain errors in wording, punctuate, or spelling. * She is here today for follow-up. She is looking well and reports feeling well. Her blood pressure was better today than last time and she actually purchased the [employer] blood pressure monitor. She states that recently she sat down to relax for about 20 minutes and she got a reading of 128/76. I am pleased with her numbers today and we do not need to prescribe medication. She states she is already back to getting on the treadmill and practicing healthier lifestyle practices and feeling better. We did conduct a review of systems. We also went over the results of recent lab work. Both her BMP and hemoglobin A1c came back within normal range. I do suggest checking these labs once a year. She is currently on no prescription medications. We discussed seeing her on an annual basis and sooner if any problems. * Pt is here today for a yearly check up, review labs. This note was generated by using [employer] software. It may contain errors in wording, punctuate, or spelling. * She is here today for her annual checkup. Her blood pressure was slightly elevated today but she checks it at home regularly and she gets systolics in the 120s and diastolics in the 70s and low 80s. We talked about the challenges of weight loss and currently she is helping to care for her parents. Her father has had some very serious health issues and required hospitalizations here recently with pneumonia. She is working long hours and sometimes gets little sleep. We talked about how stress canaffect one's ability or inability to lose weight. We talked about weight watchers as a way to organize and come up with a plan long-term. We briefly talked about the fact that there are medicines andeven sometimes surgery. We also conducted a review of systems and we went over the results of recent lab work. Her fasting glucose was slightly raised at 104 and her hemoglobin A1c is also slightly raised to 5.8. We talked about the notion of a prediabetic state and she understands that exercise along with weight loss can reduce her risk of diabetes significantly. She does follow closely with hergynecologist, Dr. Colten Valencia. She had a recent mammogram which came back fine. She would like forher lab test results to be advanced to her and we will get that going. She also states she had issues with her left knee and actually had an MRI which thankfully did not show any surgical problem andshe has been treated conservatively with medication. She states it is getting better. We also discussed digestive health and the fact that she has been diagnosed with bacterial overgrowth in the past. We talked about trying an [id number] probiotic called zurdo and if she is not getting betterwe might have her see Dr. Briseno again. We decided that we can safely see her on an annual basis orsooner for any problems Medications Administered Section Inactive Administered Medications - up to 3 most recent administrations Medication Order MAR Action Action Date Dose Rate Site tropicamide 1 % 1 Drop (MYDRIACYL) 1 Drop, BOTH EYES, ONCE, 1 dose, On Mon08/24/22 at 1700, FOR THE EYE Given 08/24/2022 5:00 PM EST 1 Drop Additional Source Comments INFORMATION SOURCE (unrecogn ized section and content) DATE CREATED AUTHOR AUTHOR'S ORGANIZ ATION 05/28/2018 [facility] DATE CREATED AUTHOR AUTHOR'S ORGANIZ ATION 07/22/2021 [facility] DATE CREATED AUTHOR AUTHOR'S ORGANIZ ATION 01/28/2022 [facility] DATE CREATED AUTHOR AUTHOR'S ORGANIZ ATION 07/09/2022 [facility] DATE CREATED AUTHOR AUTHOR'S ORGANIZ ATION 08/26/2022 [facility] <item> Privacy Markings (unrecogniz ed section and content) Section Author: Randi Michael PROHIBITION ON REDISCLOSURE OF CONFIDENTIAL INFORMATION This notice accompanies a disclosure of information concerning a client made to you with the consent of such client. Source Comments (unrecognize d section and content) In the event this informatio n is protected by the Federal Confidentiality of Alcohol and Drug Abuse Patient Records regulations: The Federal rules restrict any use of the information to criminally investigate or prosecute any alcohol or drug abuse patient.[facility] Reason for Visit (unrecogniz ed section and content) Care Teams (unrecognized sec tion and content) FOR RECORDS PERTAINING TO PATIENTS WHO ARE OR HAVE BEEN ENROLLED IN A CHEMICAL DEPENDENCY/SUBSTANCEABUSE PROGRAM, SOME INFORMATION MAY BE OMITTED. This clinical summary was aggregated from multiple sources. Caution should be exercised in using it in the provision of clinical care. This summary normalizes information from multiple sources, and as a consequence, information in this document may materially change the coding, format and clinical context of patient data. In addition, data may be omitted in some cases. CLINICAL DECISIONS SHOULD BE BASED ON THE PRIMARY CLINICAL RECORDS. [facility]. provides no warranty or guarantee of the accuracy or completeness of information in this document.
== END | disposition home or self-care (01) ==
LOC: OPBI 10:01
PROVIDERS: PCP Family Medicine; Referring Provider Obstetrics & Gynecology; Visit Provider Obstetrics & Gynecology
DX: Z12.31 Encounter for screening mammogram for malignant neoplasm of breast (principal); Z80.3 Family history of malignant neoplasm of breast
CPT/HCPCS: 77063; 77067

== ENCOUNTER → 2024-07-26 | Outpatient (CLI) | payer OTHER, SELFPAY ==
--- NOTE | 2024-07-26 09:43 | BI_ITS ---
PROCEDURE: SCRN MAMM (CAD)W/MYRTLE BILAT REASON FOR EXAM: F, Age 54 y/o, . Routine mammogram. Mother with breast cancer. TECHNIQUE: Bilateral screening digital breast tomosynthesis with 2D and 3D images. Computer aided detection. COMPARISON: Prior exam(s) dating back to July 24, 2023.. FINDINGS: There are scattered areas of fibroglandular density. Stable examination. No suspicious masses, areas of developing architectural distortion, or suspicious calcifications. BI/SCRN MAMM (CAD)W/MYRTLE BILAT IMPRESSION: BI-RADS 1: NEGATIVE. RECOMMEND ANNUAL MAMMOGRAPHIC SCREENING. Follow-up code: Routine Follow-up The patient will be notified of the results by letter. Reading Location: [place] [id number]
== END | disposition home or self-care (01) ==
LOC: OPBI 09:41
PROVIDERS: PCP Internal Medicine; Referring Provider Obstetrics & Gynecology; Visit Provider Obstetrics & Gynecology
DX: Z12.31 Encounter for screening mammogram for malignant neoplasm of breast (principal); Z80.3 Family history of malignant neoplasm of breast
CPT/HCPCS: 77063; 77067